=== PATIENT | male | born 1935 | race Caucasian/White ===

== ENCOUNTER 2022-04-20 09:37 | Emergency (ER) | payer OTHER ==
[2022-04-20] MEDS ORDERED: DERMABOND SKIN ADHESIVE TOP ONE (10:43)
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
[2022-04-20 13:26] VITALS: TEMP 98.6
[2022-04-20 13:32] VITALS: BP 164/80; O2SAT 97
== END 2022-04-20 13:17 | disposition home or self-care (01) ==
LOC: ER 09:37
PROC: 0JQ10ZZ Repair Face Subcutaneous Tissue and Fascia, Open Approach (ICD-10-PCS; principal; 2022-04-20)
DX: S01.81XA Laceration without foreign body of other part of head, initial encounter (principal); I10 Essential (primary) hypertension; E78.00 Pure hypercholesterolemia, unspecified; Z79.82 Long term (current) use of aspirin; Z96.651 Presence of right artificial knee joint
CPT/HCPCS: 70450; 99283

== ENCOUNTER 2022-11-16 08:53 | Emergency (ER) | payer OTHER ==
--- OUTSIDE RECORDS SUMMARY | 2022-11-16 08:57 | XMS REPORT | Continuity of Care Document ---
:1935 Author Organization [facility] t Address [facility] [place] [address] Care Team Providers Name Role Phone Ronen Pfeiffer Attending Clinician Unavailable Mak-Mbayo_A_AH Attending Clinician Unavailable RONEN PFEIFFER Admitting Clinician Unavailable Mak-Mbayo_A_AH Admitting Clinician Unavailable Payers Payer Name Policy Type Policy Number Effective Date Expiration Date [place] [id number] 2019 [facility] 00:00:00 [place] [id number] 2019 [facility] 00:00:00 [facility] [id number] - [employer] 00:00:00 (MEDICARE REPLACEMENT/ADV ANTAGE - HMO) Problems Condition Condition Condition Status Onset Resolution Last Treating Co mments Source Name Details Category Date Date Treatment Clinician Date 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 loss type Medical Center Allergies, Adverse Reactions, Alerts This patient has no known allergies or adverse reactions. Social History Social Habit Start Date Stop Date Quantity Comments Source History of Tobacco Use Co mmon [facility] Sex Assigned At Com mon [facility] Smoking Status Start Date Stop Date Source Never Smoker Common [facility] Medications Ordered Filled Start Stop Current Ordering Indication Dosage Frequency Signature Comments Components Source Medication Medication Date Date Medication? Clinician (SIG) Name Name hydroCHLORO hydroCHLORO No 1{table QD hydroCHLOR thiazide 25 thiazide 25 t_in_th Othiazide mg mg e_morni 25 mg ng} Valsartan Valsartan No 1{table QD 320 MG 320 MG t} hydroCHLORO hydroCHLORO No 1{table QD thiazide 25 thiazide 25 t_in_th mg mg e_morni ng} hydroCHLORO hydroCHLORO No thiazide 25 thiazide 25 MG MG Finasteride Finasteride No 5 MG 5 MG Aspirin 81 Aspirin 81 No 1{table QD 81 MG 81 MG t} Valsartan Valsartan No 320 MG 320 MG Lovastatin Lovastatin No 10 MG 10 MG Finasteride Finasteride No 1{table QD 5 MG 5 MG t} Tamsulosin Tamsulosin No 1{capsu QD HCl 0.4 MG HCl 0.4 MG le} Lovastatin Lovastatin No 10 MG 10 MG Lovastatin Lovastatin Yes Ronen take 1 Common Pfeiffer tablet by Spirit mouth - [facility] every day [facility] Finasteride Finasteride Yes Ronen 1 tablet Common Pfeiffer [facility] Hydrochloro Hydrochloro Yes Ronen TAKE 1 Common thiazide thiazide Pfeiffer TABLET BY S pirit MOUTH - [facility] EVERY DAY [facility] Valsartan Valsartan Yes Ronen 1 tablet Common Pfeiffer [facility] CHI [facility] Aspirin 81 Aspirin 81 Yes Ronen 1 tablet Common Pfeiffer [facility] Tamsulosin Tamsulosin Yes Ronen TAKE 1 Common HCl HCl Pfeiffer CAPSULE BY Spirit MOUTH - [facility]I EVERY DAY [facility] Finasteride Finasteride Yes Ronen TAKE 1 Common Pfeiffer TABLET BY Spirit MOUTH - [facility] EVERY DAY [facility] Tamsulosin Tamsulosin No 1{capsu QD Tamsulosin HCl 0.4 MG HCl 0.4 MG le} HCl 0.4 MG hydroCHLORO hydroCHLORO No hydroCHLOR thiazide 25 thiazide 25 Othiazide MG MG 25 MG Finasteride Finasteride No Finasterid 5 MG 5 MG e 5 MG Valsartan Valsartan No Valsartan 320 MG 320 MG 320 MG Aspirin 81 Aspirin 81 No 1{table QD Aspirin 81 81 MG 81 MG t} 81 MG Lovastatin Lovastatin No Lovastatin 10 MG 10 MG 10 MG Tamsulosin Tamsulosin No 1{capsu QD Tamsulosin HCl 0.4 MG HCl 0.4 MG le} HCl 0.4 MG hydroCHLORO hydroCHLORO No hydroCHLOR thiazide 25 thiazide 25 Othiazide MG MG 25 MG Finasteride Finasteride No Finasterid 5 MG 5 MG e 5 MG Valsartan Valsartan No Valsartan 320 MG 320 MG 320 MG Aspirin 81 Aspirin 81 No 1{table QD Aspirin 81 81 MG 81 MG t} 81 MG Lovastatin Lovastatin No Lovastatin 10 MG 10 MG 10 MG hydroCHLORO hydroCHLORO No 1{table QD hydroCHLOR thiazide 25 thiazide 25 t_in_th Othiazide mg mg e_morni 25 mg ng} Finasteride Finasteride No 1{table QD Finasterid 5 MG 5 MG t} e 5 MG Valsartan Valsartan No 1{table QD Valsartan 320 MG 320 MG t} 320 MG Aspirin 81 Aspirin 81 No 1{table QD Aspirin 81 81 MG 81 MG t} 81 MG Lovastatin Lovastatin No Lovastatin 10 MG 10 MG 10 MG Valsartan Valsartan No 1{table QD Valsartan 320 MG 320 MG t} 320 MG Lovastatin Lovastatin No Lovastatin 10 MG 10 MG 10 MG Tamsulosin Tamsulosin No 1{capsu QD Tamsulosin HCl 0.4 MG HCl 0.4 MG le} HCl 0.4 MG Finasteride Finasteride No 1{table QD Finasterid 5 MG 5 MG t} e 5 MG hydroCHLORO hydroCHLORO No 1{table QD hydroCHLOR thiazide 25 thiazide 25 t_in_th Othiazide mg mg e_morni 25 mg ng} hydroCHLORO hydroCHLORO No 1{table QD hydroCHLOR thiazide 25 thiazide 25 t_in_th Othiazide mg mg e_morni 25 mg ng} Finasteride Finasteride No 1{table QD Finasterid 5 MG 5 MG t} e 5 MG Valsartan Valsartan No 1{table QD Valsartan 320 MG 320 MG t} 320 MG Aspirin 81 Aspirin 81 No 1{table QD Aspirin 81 81 MG 81 MG t} 81 MG Lovastatin Lovastatin No Lovastatin 10 MG 10 MG 10 MG Valsartan Valsartan No 1{table QD Valsartan 320 MG 320 MG t} 320 MG Lovastatin Lovastatin No Lovastatin 10 MG 10 MG 10 MG Tamsulosin Tamsulosin No 1{capsu QD Tamsulosin HCl 0.4 MG HCl 0.4 MG le} HCl 0.4 MG Finasteride Finasteride No 1{table QD Finasterid 5 MG 5 MG t} e 5 MG Tamsulosin Tamsulosin Ronen 1 capsule Common HCl HCl 02-06 Pfeiffer Spirit 00:00 - [facility] :00 [facility] Immunizations Ordered Immunization Filled Immunization Date Status Commen ts Source Name Name [facility] Flu 2020-06-30 Completed [facility] 08:29:00 - [facility] Flu FluAD 2020-06-30 Completed [facility] 08:29:00 - [facility] FluAD FluAD 2020-06-30 Completed [facility] 08:29:00 - [facility] FluAD 2020-06-30 Com[facility]30 [facility] 08:29:00 [facility] Vital Signs Vital Name Observation Time Observation Value Comments Source height 2022-04-15 08:20:00 67.50 [in_i] [facility] weight 2022-04-15 08:20:00 160.5 [lb_av] [facility] temperature 2022-04-15 08:20:00 99.1 [degF] [facility] bmi 2022-04-15 08:20:00 24.76 kg/m2 [facility] oximetry 2022-04-15 08:20:00 95 % [facility] respiratory rate 2022-04-15 08:20:00 17 /min Comm on [facility] blood pressure 2022-04-15 08:20:00 135 mm[Hg] [facility] - systolic [facility] blood pressure 2022-04-15 08:20:00 72 mm[Hg] Common [facility] - diastolic [facility] height 2022-04-15 08:20:00 67.50 [in_i] Common [facility] weight 2022-04-15 08:20:00 160.5 [lb_av] Common [facility] temperature 2022-04-15 08:20:00 99.1 [degF] Common [facility] bmi 2022-04-15 08:20:00 24.76 kg/m2 Common [facility] oximetry 2022-04-15 08:20:00 95 % Common [facility] respiratory rate 2022-04-15 08:20:00 17 /min Comm on [facility] blood pressure 2022-04-15 08:20:00 135 mm[Hg] Common [facility] - systolic [facility] blood pressure 2022-04-15 08:20:00 72 mm[Hg] Common [facility] diastolic [facility] weight 2021-10-15 08:00:00 168.4 [lb_av] [facility] temperature 2021-10-15 08:00:00 97.5 [degF] Common [facility] bmi 2021-10-15 08:00:00 25.98 kg/m2 Common [facility] oximetry 2021-10-15 08:00:00 97 % Common [facility] respiratory rate 2021-10-15 08:00:00 17 /min Comm on [facility] blood pressure 2021-10-15 08:00:00 137 mm[Hg] Common [facility] - systolic [facility] blood pressure 2021-10-15 08:00:00 74 mm[Hg] Common [facility] - diastolic [facility] height 2021-10-15 08:00:00 67.50 [in_i] Common [facility] height 2021-04-24 10:30:00 67.50 [in_i] [facility] weight 2021-04-24 10:30:00 169.7 [lb_av] [facility] temperature 2021-04-24 10:30:00 98.2 [degF] Common [facility] bmi 2021-04-24 10:30:00 26.18 kg/m2 [facility] oximetry 2021-04-24 10:30:00 94 % [facility] respiratory rate 2021-04-24 10:30:00 16 /min Comm on [facility] blood pressure 2021-04-24 10:30:00 135 mm[Hg] Common [facility] - systolic [facility] blood pressure 2021-04-24 10:30:00 62 mm[Hg] Common [facility] - diastolic [facility] height 2021-04-24 10:00:00 67.50 [in_i] Common [facility] weight 2021-04-24 10:00:00 169.7 [lb_av] [facility] temperature 2021-04-24 10:00:00 98.2 [degF] [facility] bmi 2021-04-24 10:00:00 26.18 kg/m2 Common [facility] oximetry 2021-04-24 10:00:00 94 % Common [facility] blood pressure 2021-04-24 10:00:00 135 mm[Hg] Common [facility] - systolic [facility] blood pressure 2021-04-24 10:00:00 62 mm[Hg] [facility] diastolic [facility] Procedures This patient has no known procedures. Encounters Start End Encounter Admission Attending Care Care Encounter Source Date/Time Date/Time Type Type Clinicians Facility Department ID 2022-04-11 Outpatient Pfeiffer, STLMLC STLMLC [id number] Common 09:23:00 Ronen [facility] 2021-11-06 Outpatient Pfeiffer, STLMLC STLMLC [id number] Common 14:30:22 Ronen [facility] 2021-11-06 Outpatient Pfeiffer, STLMLC STLMLC [id number] Common 14:30:13 Ronen [facility] 2021-11-06 Outpatient Pfeiffer, STLMLC STLMLC [id number] Common 12:31:19 Ronen [facility] 2021-11-06 Outpatient Pfeiffer, STLMLC STLMLC [id number] Common 11:59:39 Ronen [id number] [facility] 2021-11-06 Outpatient Pfeiffer, STLMLC STLMLC [id number] Common 11:53:01 Ronen [id number] [facility] 2021-11-06 Outpatient Pfeiffer, STLMLC STLMLC [id number] Common 11:19:18 Ronen [id number] [facility] 2021-11-06 Outpatient Pfeiffer, STLMLC STLMLC [id number] Common 11:18:11 Ronen [id number] [facility] 2021-11-06 Outpatient Pfeiffer, STLMLC STLMLC [id number] Common 11:04:01 Ronen [id number] [facility] 2022-04-15 2022-04-15 OFFICE STLMLC STLMLC [id number] Co mmon 00:00:00 00:00:00 VISIT Spirit ESTAB PT - [facility]I LEVEL [address] [place] [address] 2022-04-15 2022-04-15 SUB ANNUAL STLMLC STLMLC [id number] Common 00:00:00 00:00:00 MCR Spirit WELLNESS - [facility]I VISIT [facility] 2021-10-15 2021-10-15 OFFICE STLMLC STLMLC [id number] Co mmon 00:00:00 00:00:00 VISIT Spirit ESTAB PT - [facility] LEVEL 4 [facility] 2021-04-24 2021-04-24 OFFICE STLMLC STLMLC [id number] Co mmon 00:00:00 00:00:00 VISIT Spirit ESTAB PT - [facility] LEVEL 4 [facility] 2021-04-24 2021-04-24 SUB ANNUAL STLMLC STLMLC [id number] Common 00:00:00 00:00:00 MCR [facility] WELLNESS - [facility]I VISIT [facility] 2020-12-04 2020-12-04 Outpatient STLMLC STLMLC [id number] Common 00:00:00 00:00:00 Spirit - CHI [facility] 2020-08-08 2020-08-08 Outpatient STLMLC STLMLC [id number] Common 00:00:00 00:00:00 [facility] 2020-05-09 2020-05-09 [id number] Common 08:00:00 08:00:[address] [employer] [address] [facility] 2020-02-07 2020-02-07 [facility] [id number] Common 08:15:00 08:15:[address] [facility] 2019-11-30 2019-11-30 Outpatient Mak-Mbayo VFP VFP [id number] [facility] 07:23:00 07:23:00 _A_ [id number] [facility] 2019-11-09 2019-11-09 Out[facility] [id number] Common 09:00:00 09:00:[address] [facility] Results This patient has no known results.
[2022-11-16] MEDS ORDERED: FAMOTIDINE 20 MG/2 ML VIAL IV ONE (09:36)
[2022-11-16] MEDS ORDERED: NITROGLYCERIN 1 GM PKT TD ONE (09:36)
[2022-11-16] MEDS ORDERED: ASPIRIN 81 MG CHEWABLE TABLET ONE (09:36)
[2022-11-16] MEDS ORDERED: ONDANSETRON 4 MG/2 ML VIAL ONE (09:36)
[2022-11-16] MEDS ORDERED: CLOPIDOGREL 75 MG TABLET ONE ×2 (09:39→09:43)
[2022-11-16 09:45] LABS: Absolute Lymphocytes (CBC) 0.8 K/uL (0.7-4.9); Hematocrit 46.6 % (39.6-49.0); Lymphocytes % 12.1 % (15.3-44.8); MCV 95.3 fL (80-100); MPV 7.8 fL (7.6-11.3); RBC Red Blood Cell Count 4.89 M/uL (4.33-5.43)
[2022-11-16] MEDS ORDERED: TENECTEPLASE 50 MG/10 ML VIAL IV ONE (09:49)
[2022-11-16 09:58] LABS: Albumin 3.7 g/dL (3.4-5.0); Bilirubin Direct 0.2 mg/dL (0-0.2)
[2022-11-16 10:02] LABS: SARS-CoV-2 Antigen Rapid Res Negative (Negative)
[2022-11-16 10:02] LABS: Potassium 3.6 mmol/L (3.5-5.1)
--- NOTE | 2022-11-16 10:07 | ER ---
Nurse's Notes [facility] Name: Ralph Mckeon Age: 87 yrs Sex: Male : 1935 Arrival Date: 11/16/2022 Time: 08:58 Bed External Waiting [facility] MD: Diagnosis: ST elevation (STEMI) myocardial infarction of inferior wall Presentation: 11/16 09:16 Chief complaint: Patient states: is having indigestion type pain/pressure in chest for iw past 2 nights, pain is relieved by belching but it keeps him up at night , feels SOB with the pressure. Coronavirus screen: At this time, the client does not indicate any symptoms associated with coronavirus-19. Ebola Screen: Patient negative for fever greater than or equal to 101.5 degrees Fahrenheit, and additional compatible Ebola Virus Disease symptoms Patient denies exposure to infectious person. Patient denies travel to an Ebola-affected area in the 21 days before illness onset. No symptoms or risks identified at this time. Initial Sepsis Screen: Does the patient meet any 2 criteria? No. Patient's initial sepsis screen is negative. Does the patient have a suspected source of infection? No. Patient's initial sepsis screen is negative. Risk Assessment: Do you want to hurt yourself or someone else? Patient reports no desire to harm self or others. 09:16 Method Of Arrival: Ambulatory iw 09:16 Acuity: PEYTON 3 iw 10:02 Acuity: PEYTON 1 hb Historical: - Allergies: 09:19 No Known Allergies; iw - Home Meds: 09:19 valsartan 320 mg Oral tab once daily [Active]; hydrochlorothiazide 25 mg Oral tab 1 tab iw once daily [Active]; lovastatin 10 mg Oral tab 1 tab once daily [Active]; finasteride 5 mg Oral tab once daily [Active]; aspirin 81 mg Oral tab daily [Active]; - PMHx: 09:19 High Cholesterol; Hypertension; iw - PSHx: 09:19 Prostate surgery; cataracts; Right knee replacement; iw - Immunization history:: Client reports receiving the 2nd dose of the Covid vaccine, Pneumococcal vaccine is up to date, Flu vaccine is up to date. - Social history:: Smoking status: Patient/guardian denies using tobacco. Screenin:39 [facility] ED Fall Risk Assessment (Adult) History of falling in the last 3 months, vg1 including since admission No falls in past 3 months (0 pts) Confusion or Disorientation No (0 pts) Intoxicated or Sedated No (0 pts) Impaired Gait Yes (1 pt) Mobility Assist Device Used Yes (1 pt) Altered Elimination No (0 pt) Score/Fall Risk Level 0 - 2 = Low Risk Oriented to surroundings, Maintained a safe environment, Educated pt \T\ family on fall prevention, incl call for assistance when getting out of bed, Assessed \T\ reinforced patient's understanding of fall precautions, Used ambulatory aids as needed (educated on \T\ assisted with). Abuse screen: Denies threats or abuse. Denies injuries from another. Nutritional screening: No deficits noted. Tuberculosis screening: No symptoms or risk factors identified. Assessment: 09:43 General: Appears in no apparent distress. Behavior is calm, cooperative. Pain: Pain hb currently is 0 out of 10 on a pain scale. at worst was 8 out of 10 on a pain scale. Neuro: Level of Consciousness is awake, alert, obeys commands, Oriented to person, place, time, situation. Cardiovascular: Reports intermittent substernal CP Patient's skin is warm and dry. Respiratory: Respiratory effort is even, unlabored, Respiratory pattern is regular, symmetrical. GI: No signs and/or symptoms were reported involving the gastrointestinal system. : No signs and/or symptoms were reported regarding the genitourinary system. EENT: No signs and/or symptoms were reported regarding the EENT system. Derm: Skin is pink, warm \T\ dry. Musculoskeletal: No signs and/or symptoms reported regarding the musculoskeletal system. 09:56 Reassessment: Attempted to call report, director of cardiac cath lab staff unavailable, told to call back in 10 mins per Carlota FLOWER. 10:10 Reassessment: Attempted to call report, director of cardiac cath lab unavailable. 10:23 Reassessment: Attemtpted to call report, director of cardiac cath lab unavailable. 10:44 Reassessment: Attempted to call report to ER, charge nurse requested call back 10 . Vital Signs: 09:16 BP 185 / 92; Pulse 76; Resp 16; Pulse Ox 94% on R/A; Weight 68.49 kg; Height 5 ft. 8 iw in. (172.72 cm); 09:43 Temp 98.4(TE); vg1 09:16 Body Mass Index 22.96 (68.49 kg, 172.72 cm) iw ED Course: 08:58 Patient arrived in ED. as 08:59 Alvaro Addison MD is Attending Physician. kdr 09:13 Fadia Wadsworth, RN is Primary Nurse. hb 09:13 Fadia Wadsworth, RN is Primary Nurse. hb 09:18 Triage completed. iw 09:20 Arm band placed on. iw 09:35 initiated a transfer with Steven Feliz from the [facility]/ STEMI eb protocol. 09:38 Initial lab(s) drawn, by me, sent to lab. Inserted saline lock: 20 gauge in right vg1 antecubital area, using aseptic technique. Blood collected. Patient maintains SpO2 saturation greater than 95% on room air. 09:39 Patient has correct armband on for positive identification. Placed in gown. Bed in low vg1 position. Call light in reach. Side rails up X2. Adult w/ patient. Client placed on continuous cardiac and pulse oximetry monitoring. NIBP monitoring applied. 09:[address] Orlando the gas meter installer production tester for [facility] with Dr. Addison for eb patient transfer consultation. 09:48 administrative approval given by Steven Feliz, patient has been accepted to [facility] Land Surveying Manager/ Dr. Orlando has accepted the patient in transfer/ report to be called to the [phone]. 09:50 Inserted saline lock: 20 gauge in right forearm, using aseptic technique. mm9 09:51 SARS RAPID Sent. mm9 09:51 XRAY Chest (1 view) Sent. mm9 09:55 XRAY Chest (1 view) In Process Unspecified. EDMS 10:30 No provider procedures requiring assistance completed. Patient transferred, IV remains hb in place. Administered Medications: 09:42 Drug: Nitro-Bid (nitroglycerin) Ointment 2 % 1 inches Route: Transdermal; Site: hb anterior chest wall; 09:42 Drug: Aspirin Chewable Tablet 324 mg Route: PO; hb 09:42 Drug: Pepcid (famotidine) 20 mg Route: IVP; Site: right antecubital; hb 09:42 Drug: Zofran (Ondansetron) 4 mg Route: IVP; Site: right antecubital; hb 09:42 Drug: PlaVIX (clopidogrel) 600 mg Route: PO; hb 10:00 Drug: Tenecteplase 35 mg {Co-Signature: juan (Katerina Pza RN).} Route: IV; Rate: hb calculated rate; Site: right antecubital; Medication: 09:40 VIS not applicable for this client. vg1 Outcome: 10:07 ER care complete, transfer ordered by . kdr 10:30 Transferred by helicopter to [facility]. hb 10:30 Condition: stable 10:30 Instructed on the need for transfer, Demonstrated understanding of instructions. 10:34 Patient left the ED. hb Signatures: Dispatcher [employer] EDMS Alvaro Addison MD MD kdr Martinez, Amelia as Williams, Irene, RN RN Fadia Valadez RN RN hb Bessie Jones Victoria RN RN vg1 Jolanta Larry mm9 Katerina martinez Corrections: (The following items were deleted from the chart) 10:08 10:02 Acuity: PEYTON 2 iw hb
--- NOTE | 2022-11-16 10:07 | EDPHYS ---
Physician Documentation [facility] Name: Ralph Mckeon Age: 87 yrs Sex: Male : 1935 Arrival Date: 11/16/2022 Time: 08:58 Bed External Waiting Private MD: ELEONORA Physician Alvaro Addison HPI: 11/16 09:58 This 87 yrs old Male presents to ER via Ambulatory with complaints of Chest Pressure, kdr Weakness. 09:58 No chest pain no belly pain he says patient states he has had an indigestion feeling kdr since Thursday. He states that he occasionally has pressure that builds up and then he needs to belch and that seems to relieve his discomfort. Patient is not in any acute distress and is nontoxic-appearing.. Historical: - Allergies: 09:19 No Known Allergies; iw - Home Meds: 09:19 valsartan 320 mg Oral tab once daily [Active]; hydrochlorothiazide 25 mg Oral tab 1 tab iw once daily [Active]; lovastatin 10 mg Oral tab 1 tab once daily [Active]; finasteride 5 mg Oral tab once daily [Active]; aspirin 81 mg Oral tab daily [Active]; - PMHx: 09:19 High Cholesterol; Hypertension; iw - PSHx: 09:19 Prostate surgery; cataracts; Right knee replacement; iw - Immunization history:: Client reports receiving the 2nd dose of the Covid vaccine, Pneumococcal vaccine is up to date, Flu vaccine is up to date. - Social history:: Smoking status: Patient/guardian denies using tobacco. ROS: 09:58 Constitutional: Negative for fever, chills, and weight loss, Eyes: Negative for injury, kdr pain, redness, and discharge, ENT: Negative for injury, pain, and discharge, Neck: Negative for injury, pain, and swelling, Cardiovascular: Negative for chest pain, palpitations, and edema, Respiratory: Negative for shortness of breath, cough, wheezing, and pleuritic chest pain, Back: Negative for injury and pain, : Negative for injury, bleeding, discharge, and swelling, MS/Extremity: Negative for injury and deformity, Skin: Negative for injury, rash, and discoloration, Neuro: Negative for headache, weakness, numbness, tingling, and seizure activity. Psych: Negative for depression, anxiety, suicide ideation, homicidal ideation, and hallucinations, Allergy/Immunology: Negative for hives, rash, and allergies, Endocrine: Negative for neck swelling, polydipsia, polyuria, polyphagia, and marked weight changes, Hematologic/Lymphatic: Negative for swollen nodes, abnormal bleeding, and unusual bruising. 09:58 Abdomen/GI: Positive for abdominal pain, nausea, The patient states that he has felt bloated and has had pressure in his upper abdomen since [place]. He states that periodically he will belch at which time the pressure seems to be relieved. He has not had anything like this before he denies shortness of breath or diaphoresis. Patient is otherwise nontoxic-appearing. Exam: :58 Constitutional: This is a well developed, well nourished patient who is awake, alert, kdr and in no acute distress. Head/Face: Normocephalic, atraumatic. Eyes: Pupils equal round and reactive to light, extra-ocular motions intact. Lids and lashes normal. Conjunctiva and sclera are non-icteric and not injected. Cornea within normal limits. Periorbital areas with no swelling, redness, or edema. Neck: Trachea midline, no thyromegaly or masses palpated, and no cervical lymphadenopathy. Supple, full range of motion without nuchal rigidity, or vertebral point tenderness. No Meningismus. Chest/axilla: Normal chest wall appearance and motion. Nontender with no deformity. No lesions are appreciated. Cardiovascular: Regular rate and rhythm with a normal S1 and S2. No gallops, murmurs, or rubs. Normal PMI, no JVD. No pulse deficits. Respiratory: Lungs have equal breath sounds bilaterally, clear to auscultation and percussion. No rales, rhonchi or wheezes noted. No increased work of breathing, no retractions or nasal flaring. Abdomen/GI: Soft, non-tender, with normal bowel sounds. No distension or tympany. No guarding or rebound. No evidence of tenderness throughout. Back: No spinal tenderness. No costovertebral tenderness. Full range of motion. Skin: Warm, dry with normal turgor. Normal color with no rashes, no lesions, and no evidence of cellulitis. MS/ Extremity: Pulses equal, no cyanosis. Neurovascular intact. Full, normal range of motion. Neuro: Awake and alert, GCS 15, oriented to person, place, time, and situation. Cranial nerves II-XII grossly intact. Motor strength 5/5 in all extremities. Sensory grossly intact. Cerebellar exam normal. Normal gait. Psych: Awake, alert, with orientation to person, place and time. Behavior, mood, and affect are within normal limits. 09:58 ECG was reviewed by the Attending Physician. Vital Signs: 09:16 BP 185 / 92; Pulse 76; Resp 16; Pulse Ox 94% on R/A; Weight 68.49 kg; Height 5 ft. 8 iw in. (172.72 cm); 09:43 Temp 98.4(TE); vg1 09:16 Body Mass Index 22.96 (68.49 kg, 172.72 cm) iw MDM: 09:41 ED course: I discussed with Dr. Hein about 10 minutes ago and he recommended kdr transfer. Currently awaiting call from cardiology at [facility].. 09:58 Data reviewed: vital signs, nurses notes, lab test result(s), EKG, radiologic studies. [facility] ED course: I discussed the case with the sand cutter operator at [facility]. He indicated that we should TNKase the patient was a full dose. Patient otherwise continue to be stable in the ED.. 10:07 Patient medically screened. kdr 11/16 08:59 Order name: Basic Metabolic Panel [facility] 11/16 08:59 Order name: CBC with Diff kdr 11/16 08:59 Order name: LFT's kdr 11/16 08:59 Order name: NT PRO-BNP kdr 11/16 08:59 Order name: Troponin HS kdr 11/16 09:39 Order name: SARS RAPID eb 11/16 08:59 Order name: XRAY Chest (1 view) [facility] 11/16 08:59 Order name: EKG; Complete Time: 09:00 kdr 11/16 08:59 Order name: Cardiac monitoring; Complete Time: 09:16 kdr 11/16 08:59 Order name: EKG - Nurse/Tech; Complete Time: 09:16 kdr 11/16 08:59 Order name: IV Saline Lock; Complete Time: 09:42 kdr 11/16 08:59 Order name: Labs collected and sent; Complete Time: 09:42 kdr 11/16 08:59 Order name: O2 Per Protocol; Complete Time: 09:16 kdr 11/16 08:59 Order name: O2 Sat Monitoring; Complete Time: 09:16 kdr EC:58 Rate is 67 beats/min. Rhythm is regular, Sinus Rhythm with No ectopy. QRS [place] is kdr Normal. IA interval is normal. QRS interval is normal. ST Segment is elevated in leads II, III, aVF, 2-5mm. Clinical impression: Anterior IN - acute. Administered Medications: 09:42 Drug: Nitro-Bid (nitroglycerin) Ointment 2 % 1 inches Route: Transdermal; Site: hb anterior chest wall; 09:42 Drug: Aspirin Chewable Tablet 324 mg Route: PO; hb 09:42 Drug: Pepcid (famotidine) 20 mg Route: IVP; Site: right antecubital; hb 09:42 Drug: Zofran (Ondansetron) 4 mg Route: IVP; Site: right antecubital; hb 09:42 Drug: PlaVIX (clopidogrel) 600 mg Route: PO; hb 10:00 Drug: Tenecteplase 35 mg {Co-Signature: juan (Katerina Paz RN).} Route: IV; Rate: hb calculated rate; Site: right antecubital; Disposition Summary: 11/16/22 10:07 Transfer Ordered Transfer Location: [facility] kdr Reason: Higher level of care kdr Condition: Serious kdr Problem: new kdr Symptoms: have improved kdr Accepting Physician: Dr. Orlando(11/16/22 10:34) hb Diagnosis - ST elevation (STEMI) myocardial infarction of inferior wall kdr Discharge Instructions: - Discharge Summary Sheet eb Forms: - Medication Reconciliation Form kdr - SBAR form eb Signatures: Dispatcher [employer] Alvaro Stern MD MD kdr Katerina Paz RN RN iw Fadia Wadsworth RN RN hb Katerina martinez Corrections: (The following items were deleted from the chart) 10:34 10:07 Dr. Orlando kdr hb
--- NOTE | 2022-11-16 10:11 | RAD REPORT ---
EXAM DESCRIPTION: RAD - Chest Single View - 11/16/2022 9:53 am CLINICAL HISTORY: Chest pain COMPARISON: Portable 09/18/2016 TECHNIQUE: AP portable chest image was obtained 11/16/2022 9:53 am . FINDINGS: Lung volumes are decreased compared to the prior study. Interstitial pattern is increased from the comparison. This is in part due to shallow inspiration mid and lower lung field interstitial edema or infiltrate suspected. No focal consolidation or mass. Heart and vasculature are normal. No measurable pleural effusion and no pneumothorax. No acute bony abnormality seen. No acute aortic findings suspected. IMPRESSION: Increased interstitial pattern compared to 2016 exam. Mild interstitial edema or infiltrate superimposed on chronic lung pattern is suspected.
[2022-11-16 10:38] VITALS: BP 185/92; O2SAT 94
[2022-11-16 10:39] VITALS: TEMP 98.4
== END 2022-11-16 10:34 | disposition short-term general hospital (02) ==
LOC: ER 08:53
DX: I21.19 ST elevation (STEMI) myocardial infarction involving other coronary artery of inferior wall (principal); I10 Essential (primary) hypertension; E78.00 Pure hypercholesterolemia, unspecified; Z96.651 Presence of right artificial knee joint; Z79.82 Long term (current) use of aspirin; Z20.822 Contact with and (suspected) exposure to COVID-19
CPT/HCPCS: 92977; 93005; 85025; 80048; 36415; 80076; 84484; 83880; 71045; 96375; 96374; 99285; 87811; J3101; J2405

== ENCOUNTER 2023-04-25 17:01 | Emergency (ER) | payer OTHER ==
--- OUTSIDE RECORDS SUMMARY | 2023-04-25 17:06 | XMS REPORT | Continuity of Care Document ---
:1935 Author Organization [facility] t Address [address] [facility] [address] [place] [address] Care Team Providers Name Role Phone MATEO PFEIFFER Primary Care Physician Unavailable Miranda Orlando MD Attending Clinician [phone] Mateo Pfeiffer Attending Clinician Unavailable TERESO RAO Attending Clinician Unavailable Tereso Rao MD Attending Clinician Serenity Fisher RN Attending Clinician Unavailable Wallace Peters MD Attending Clinician [phone] MIRANDA ORLANDO Attending Clinician Unavailable No, Pcp [facility] [place] Attending Clinician Unavailable Mak-Mbayo_A_AH Attending Clinician Unavailable MIRANDA ORLANDO Admitting Clinician Unavailable MATEO PFEIFFER Admitting Clinician Unavailable Mak-Mbayo_A_AH Admitting Clinician Unavailable Payers Payer Name Policy Type Policy Number Effective Date Expiration Date S g[facility] [place] [id number] 2022 PLUS CLASSIC NO 00:00:00 PREMIUM HMO [employer] [id number] 2019 [facility] 00:00:00 - [facility] [place] [id number] 2019 [facility] 00:00:00 - [facility] [id number] [id number] - [facility] 00:00:00 (MEDICARE REPLACEMENT/ADV ANTAGE - HMO) Problems Condition Condition Condition Status Onset Resolution Last Treating Co mments Source Name Details Category Date Date Treatment Clinician Date STEMI (ST STEMI (ST Disease Recurre [facility] elevation elevation nce 2-05 Luke [facility] myocardial myocardial 00:00: Me dical infarction infarction 00 Ce nter ) ) 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, - [facility] un[facility] hearing [facility] loss type Medical Center Allergies, Adverse Reactions, Alerts Allergy Allergy Status Severity Reaction(s) Onset Inactive Treating Comm ents Source Name Type Date Date Clinician NO KNOWN Drug Active Univers ALLERGIE Class ity of S [facility] NO KNOWN Allergy Active [facility] ALLERGIE S Social History Social Habit Start Date Stop Date Quantity Comments Source History SDOH [facility] Transport Non-[facility] History of tobacco Cigarette Smoker University of use [facility] Gender identity Universit y of [facility] Sexual orientation Univer sity [facility] Exposure to 2023-01-12 2023-01-22 Not sure University SARS-CoV-2 (event) 00:00:00 09:59:00 [facility] Tobacco use and 2023-01-22 2023-01-22 Smokeless Universit y of exposure 00:00:00 00:00:00 tobacco non-user [facility] History of Social 2023-01-22 2023-01-22 Univers ity of function 00:00:00 00:00:00 [facility] Alcohol intake 2022-11-27 2022-11-27 [facility] (finding) History [facility] 2022-11-17 2022-11-[address] [facility] Transport Med 00:00:00 00:00:[address] [facility] 2022-11-17 2022-11-[address] [facility] Housing Unable to 00:00:00 00:00:00 Medical Center Pay History [facility] 2022-11-17 2022-11-[address] [facility] Housing Places 00:00:00 00:00:00 Medical Ce nter Lived History [facility] 2022-11-17 2022-11-[address] [facility] Housing Homeless 00:00:00 00:00:00 Medical Center Last Year Tobacco Comment 2022-11-16 2022-11-16 "I Quit [address] [facility] 00:00:00 00:00:00 ago" Medical Center Sex Ass[birth year] At [birth year] Univers y of 00:00:00 00:00:00 [facility] Smoking Status Start Date Stop Date Source Ex-smoker 2023-01-22 00:00:00 2023-01-22 00:00:00 [facility] Never [facility]oker [facility] Medications Ordered Filled Start Stop Current Ordering Indication Dosage Frequency Signature Comments Components Source Medication Medication Date Date Medication? Clinician (SIG) Name Name aspirin 81 Yes 81mg Take 1 Unive rs mg chewable 7-14 tablet by ity of tablet 13:23: mouth in [place] 17 the Medical morning. Branch aspirin 81 Yes 81mg Take 1 Unive rs mg chewable 7-14 tablet by ity of tablet 13:23: mouth in [place] 17 the Medical morning. Branch aspirin 81 Yes 81mg Take 1 Unive rs mg chewable 4-13 tablet by ity of tablet 10:23: mouth in [place] 45 the Medical morning. Branch aspirin 81 Yes 81mg Take 1 Unive rs mg chewable 4-13 tablet by ity of tablet 10:23: mouth in [place] 45 the Medical morning. Branch valsartan Yes [id number] 320mg Take 1 U nivers 320 mg 4-13 tablet by ity of tablet 00:00: mouth in [place] 00 the Medical morning. Branch valsartan 2023-0 Yes [id number] 320mg Take 1 U nivers 320 mg 4-13 tablet by ity of tablet 00:00: mouth in [place] 00 the Medical morning. Branch valsartan 3-0 Yes [id number] 320mg Take 1 U nivers 320 mg 4-13 tablet by ity of tablet 00:00: mouth in [place] 00 the Medical morning. Branch valsartan 3-0 Yes [id number] 320mg Take 1 U nivers 320 mg 4-13 tablet by ity of tablet 00:00: mouth in [place] 00 the Medical morning. Branch atorvastati 2022-0 Yes TAKE 1 Univ ers n 40 mg 3-09 TABLET BY ity of tablet 00:00: MOUTH [place] 00 EVERY DAY Medical FOR 90 Branch DAYS clopidogreL 2022-0 Yes TAKE 1 Univ ers 75 mg 3-09 TABLET BY ity of tablet 00:00: MOUTH [place] 00 EVERY DAY Medical FOR 90 Branch DAYS metoprolol 3-0 Yes TAKE 1/2 Uni vers tartrate 25 3-09 TABLET BY ity of mg tablet 00:00: MOUTH [place] 00 TWICE A Medical DAY Branch atorvastati 3-0 Yes TAKE 1 Univ ers n 40 mg 3-09 TABLET BY ity of tablet 00:00: MOUTH [place] 00 EVERY DAY Medical FOR 90 Branch DAYS clopidogreL 3-0 Yes TAKE 1 Univ ers 75 mg 3-09 TABLET BY ity of tablet 00:00: MOUTH [place] 00 EVERY DAY Medical FOR 90 Branch DAYS metoprolol 3-0 Yes TAKE 1/2 Uni vers tartrate 25 3-09 TABLET BY ity of mg tablet 00:00: MOUTH [place] 00 TWICE A Medical DAY Branch atorvastati 3-0 Yes TAKE 1 Univ ers n 40 mg 3-09 TABLET BY ity of tablet 00:00: MOUTH [place] 00 EVERY DAY Medical FOR 90 Branch DAYS clopidogreL 3-0 Yes TAKE 1 Univ ers 75 mg 3-09 TABLET BY ity of tablet 00:00: MOUTH [place] 00 EVERY DAY Medical FOR 90 Branch DAYS metoprolol 3-0 Yes 25mg Take 1 Unive rs tartrate 25 3-09 tablet in ity of mg tablet 00:00: the [place] 00 morning. Medical Branch atorvastati 3-0 Yes TAKE 1 Univ ers n 40 mg 3-09 TABLET BY ity of tablet 00:00: MOUTH [place] 00 EVERY DAY Medical FOR 90 Branch DAYS clopidogreL Yes TAKE 1 Univ ers 75 mg 3-09 TABLET BY ity of tablet 00:00: MOUTH [place] 00 EVERY DAY Medical FOR 90 Branch DAYS metoprolol Yes 25mg Take 1 Unive rs tartrate 25 -09 tablet in ity of mg tablet 00:00: the [place] 00 morning. Medical Branch clopidogreL 2022- No 75mg QD Take [address] (PLAVIX) 75 11-21- tablet (75 L ukes mg tablet 00:00: 23:59 mg total) Me dical 00 :00 by mouth Center daily for 30 days. finasteride Yes 5mg QD Take [address] (PROSCAR) 5 - by mouth Luke s mg tablet 11:02: daily. Medica l [address] [place] aspirin 81 0 Yes 81mg QD Take [address] MG EC 11-20 by mouth [facility]ukes tablet 11:02: daily. [address] valsartan 2022- No 320mg QD Take [address] (DIOVAN) 11-20 mg by Lukes 320 MG 10:47: 00:00 mouth Medical tablet 26 :00 daily. Center hydroCHLORO 2022- No 25mg QD Take [address] thiazide 11-20 by mouth [facility]ukes (HYDRODIURI 10:47: 00:00 daily. Med ical L) 25 MG 26 :00 Center tablet lovastatin 2022- No 10mg QD Take [address] (MEVACOR) 11-20 by mouth Lukes 10 MG 10:47: 00:00 daily. Medical tablet 26 :00 Center atorvastati 2022- No 40mg QD Take [address] n (LIPITOR) 11-20- tablet (40 L ukes 40 MG 00:00: 23:59 mg total) Medica l tablet 00 :00 by mouth Center nightly for 30 days. metoprolol 2022- No 12.5mg Q.5D Take 0.[address] tartrate 11-20-11 tablets Lukes (LOPRESSOR) 00:00: 23:59 (12.5 mg M edical 25 MG 00 :00 total) by Center tablet mouth 2 (two) times daily for 30 days. finasteride 2023-0 Yes 5mg Take 1 Univ ers 5 mg tablet 1-24 tablet by ity of 00:00: mouth in [place] 00 the Medical morning. Branch finasteride 2023-0 Yes 5mg Take 1 Univ ers 5 mg tablet 1-24 tablet by ity of 00:00: mouth in [place] 00 the Medical morning. Branch finasteride 2023-0 Yes 5mg Take 1 Univ ers 5 mg tablet 1-24 tablet by ity of 00:00: mouth in [place] 00 the Medical morning. Branch finasteride 2023-0 Yes 5mg Take 1 Univ ers 5 mg tablet 1-24 tablet by ity of 00:00: mouth in [place] the Medical morning. Branch Lovastatin Lovastatin Yes Mateo take 1 Common Pfeiffer tablet by Spirit mouth - CHI every day [facility] Finasteride Finasteride Yes Mateo 1 tablet Common Pfeiffer Spirit [facility] Hydrochloro Hydrochloro Yes Mateo TAKE 1 Common thiazide thiazide Pfeiffer TABLET BY S pirit MOUTH - CHI EVERY DAY [facility] Valsartan Valsartan Yes Mateo 1 tablet Common Pfeiffer Spirit - [facility] Aspirin 81 Aspirin 81 Yes Mateo 1 tablet Common Pfeiffer [facility] Tamsulosin Tamsulosin Yes Mateo TAKE 1 Common HCl HCl Pfeiffer CAPSULE BY Spirit MOUTH - CHI EVERY DAY [facility] Finasteride Finasteride Yes Mateo TAKE 1 Common Pfeiffer TABLET BY Spirit MOUTH - CHI EVERY DAY [facility] Tamsulosin Tamsulosin No 1{capsu QD [...] Lovastatin Lovastatin No 10 MG 10 MG Tamsulosin Tamsulosin 2020- No Amteo 1 capsule Common HCl HCl - Pfeiffer Spirit 00:00 - CHI :00 [facility] Immunizations Ordered Immunization Filled Immunization Date Status Commen ts Source Name Name FluAD FluAD 2020-06-30 Completed [facility] 08:29:00 - [facility] FluAD FluAD 2020-06-30 Completed [facility] 08:29:00 - [facility] FluAD FluAD 2020-06-30 Completed [facility] 08:29:00 [facility] FluAD FluAD 2020-06-30 Completed [facility] 08:29:00 - [facility] FluAD FluAD 2020-06-30 Completed [facility] 08:29:00 [facility] Vital Signs Vital Name Observation Time Observation Value Comments Source Systolic blood 2023-04-24 18:27:00 164 mm[Hg] Univer sity of pressure [facility] Diastolic blood 2023-04-24 18:27:00 81 mm[Hg] Unive rsity of pressure [facility] Heart rate 2023-04-24 18:27:00 56 /min [facility] Oxygen saturation in 2023-04-24 18:27:00 94 /min [facility] blood by [facility] Pulse oximetry Branch Body temperature 2023-04-24 18:25:00 36.67 Meliza Univ ersity of [facility] Respiratory rate 2023-04-24 18:25:00 17 /min Univ ersity of [facility] Body height 2023-04-24 18:25:00 167.6 cm per pt Universi ty of [facility] Body weight 2023-04-24 18:25:00 71.623 kg Universi ty of [place] [facility] BMI 2023-04-24 18:25:00 25.49 kg/m2 Universi ty of [facility] Branch Systolic blood 2023-01-22 15:21:00 173 mm[Hg] Univer sity of pressure [facility] Diastolic blood 2023-01-22 15:21:00 90 mm[Hg] Unive rsity of pressure [facility] Heart rate 2023-01-22 15:21:00 54 /min Universi ty of [facility] Respiratory rate 2023-01-22 15:12:00 19 /min Univ ersity of [facility] Body height 2023-01-22 15:12:00 167.6 cm Universi ty [facility] [place] [facility] Body weight 2023-01-22 15:12:00 71.668 kg [facility]i ty [facility] [place] [facility] BMI 2023-01-22 15:12:00 25.50 kg/m2 Universi ty of [facility] Branch Oxygen saturation in 2023-01-22 15:12:00 97 /min University of Arterial blood by [place] [facility] Pulse oximetry Branch WEIGHT 2022-11-19 05:47:00 70.2 kg WEIGHT 2022-11-18 06:00:00 71.5 kg WEIGHT 2022-11-17 08:00:00 72.2 kg HEIGHT 2022-11-17 08:00:00 172.7 cm WEIGHT 2022-11-17 06:00:00 71.2 kg HEIGHT 2022-11-16 10:50:00 172.7 cm WEIGHT 2022-11-16 10:50:00 68.49 kg WEIGHT 2022-11-19 05:47:00 70.2 kg WEIGHT 2022-11-18 06:00:00 71.5 kg WEIGHT 2022-11-17 08:00:00 72.2 kg HEIGHT 2022-11-17 08:00:00 172.7 cm WEIGHT 2022-11-17 06:00:00 71.2 kg HEIGHT 2022-11-16 10:50:00 172.7 cm WEIGHT 2022-11-16 10:50:00 68.49 kg height 2022-04-15 08:20:00 67.50 [in_i] Common [facility] weight 2022-04-15 08:20:00 160.5 [lb_av] Common [facility] temperature 2022-04-15 08:20:00 99.1 [degF] Common [facility] bmi 2022-04-15 08:20:00 24.76 kg/m2 [facility] oximetry 2022-04-15 08:20:00 95 % Common [facility] respiratory rate 2022-04-15 08:20:00 17 /min Comm on [facility] blood pressure 2022-04-15 08:20:00 135 mm[Hg] [facility] - systolic [facility] blood pressure 2022-04-15 08:20:00 72 mm[Hg] [facility] - diastolic [facility] height 2022-04-15 08:20:00 67.50 [in_i] [facility] weight 2022-04-15 08:20:00 160.5 [lb_av] [facility] temperature 2022-04-15 08:20:00 99.1 [degF] Common S pirit [facility] bmi 2022-04-15 08:20:00 24.76 kg/m2 [facility] oximetry 2022-04-15 08:20:00 95 % Common [facility] respiratory rate 2022-04-15 08:20:00 17 /min Comm on [facility] blood pressure 2022-04-15 08:20:00 135 mm[Hg] Common [facility] - systolic [facility] blood pressure 2022-04-15 08:20:00 72 mm[Hg] [facility] - diastolic [facility] weight 2021-10-15 08:00:00 168.4 [lb_av] Common [facility] - [facility] temperature 2021-10-15 08:00:00 97.5 [degF] Common [facility] bmi 2021-10-15 08:00:00 25.98 kg/m2 Common S [facility] oximetry 2021-10-15 08:00:00 97 % [facility] respiratory rate 2021-10-15 08:00:00 17 /min Comm on [facility] blood pressure 2021-10-15 08:00:00 137 mm[Hg] Common [facility] - systolic [facility] blood pressure 2021-10-15 08:00:00 74 mm[Hg] Common [facility] - diastolic [facility] height 2021-10-15 08:00:00 67.50 [in_i] Common [facility] height 2021-04-24 10:30:00 67.50 [in_i] Common [facility] weight 2021-04-24 10:30:00 169.7 [lb_av] [facility] temperature 2021-04-24 10:30:00 98.2 [degF] Common [facility] bmi 2021-04-24 10:30:00 26.18 kg/m2 [facility] oximetry 2021-04-24 10:30:00 94 % Common S [facility] respiratory rate 2021-04-24 10:30:00 16 /min Comm on [facility] blood pressure 2021-04-24 10:30:00 135 mm[Hg] Common [facility] - systolic [facility] blood pressure 2021-04-24 10:30:00 62 mm[Hg] Common [facility] - diastolic [facility] height 2021-04-24 10:00:00 67.50 [in_i] Common [facility] weight 2021-04-24 10:00:00 169.7 [lb_av] [facility] temperature 2021-04-24 10:00:00 98.2 [degF] [facility] bmi 2021-04-24 10:00:00 26.18 kg/m2 [facility] oximetry 2021-04-24 10:00:00 94 % [facility] blood pressure 2021-04-24 10:00:00 135 mm[Hg] [facility] [place] [facility] blood pressure 2021-04-24 10:00:00 62 mm[Hg] [facility] [place] [facility] Heart rate 2022-11-20 09:00:00 103 /min [facility] Systolic blood 2022-11-20 08:55:00 123 mm[Hg] [facility] Diastolic blood 2022-11-20 08:55:00 64 mm[Hg] [facility] Body temperature 2022-11-20 08:55:00 36.72 Meliza [facility] Respiratory rate 2022-11-20 08:55:00 18 /min [facility] Oxygen saturation in 2022-11-20 08:55:00 93 /min [facility] Arterial blood by Medical Ce nter Pulse oximetry Body weight 2022-11-19 05:47:00 70.2 kg [facility] BMI 2022-11-19 05:47:00 23.54 kg/m2 [facility] Body height 2022-11-17 08:00:00 172.7 cm [facility] Procedures Procedure Date / Time Performed Performing Clinician Sour e BASIC METABOLIC PANEL 2022-11-20 03:46:00 Hugh Fernandez [facility] MAGNESIUM 2022-11-20 03:46:00 Hugh Fernandez [facility] CBC (HEMOGRAM ONLY) 2022-11-20 03:46:00 Hugh Fernandez [facility] MD INSERT 2022-11-19 07:31:24 Pernell Loera [facility] BASIC METABOLIC PANEL 2022-11-19 02:31:00 Hugh Fernandez [facility] MAGNESIUM 2022-11-19 02:31:00 Jim [facility] CBC (HEMOGRAM ONLY) 2022-11-19 02:31:00 Jim Hugh [facility] POCT-ACT 2022-11-18 18:20:00 [facility] CTA ABDOMEN & PELVIS 2022-11-18 17:07:00 Pernell Loera [facility] PREPARE RBC 2022-11-18 15:34:00 [facility] ABORH, MANUAL 2022-11-18 14:30:00 Venus Coburn [facility] POCT-ACT 2022-11-18 14:16:00 [facility] CBC (HEMOGRAM ONLY) 2022-11-18 13:48:00 Pernell Loera [facility] BASIC METABOLIC PANEL 2022-11-18 13:48:00 Pernell Loera [facility] MAGNESIUM 2022-11-18 13:48:00 Pernell Loera [facility] TYPE AND SCREEN, 2022-11-18 13:48:00 Pernell Loera [facility] AUTOMATED [facility] HC LAB PLATELET COUNT 2022-11-18 13:29:00 Pernell Loera [facility] AUTO [facility] POCT-ACT 2022-11-18 13:26:00 [facility] POCT-ACT 2022-11-18 11:54:00 [facility] POCT-ACT 2022-11-18 11:36:00 [facility] POCT-ACT 2022-11-18 11:07:00 Bandeali, [facility] POCT-ACT 2022-11-18 10:53:00 [facility] [place] POCT-ACT 2022-11-18 10:24:00 [facility] POCT-ACT 2022-11-18 10:02:00 [facility] CATHETERIZATION, HEART, 2022-11-18 09:13:00 [facility] LEFT, WITH PERCUTANEOUS [facility] CORONARY INTERVENTION APTT 2022-11-18 05:39:00 Jim [facility] BASIC METABOLIC PANEL 2022-11-18 03:37:00 Jim Hugh [facility] MAGNESIUM 2022-11-18 03:37:00 Jim [facility] CBC (HEMOGRAM ONLY) 2022-11-18 03:37:00 Jim [facility] HIGH SENSITIVITY 2022-11-18 03:37:00 CellTuan centeno [facility] PHOSPHORUS 2022-11-18 03:37:00 Pernell Loera [facility] APTT 2022-11-17 23:08:00 Jim Hugh [facility] CBC (HEMOGRAM ONLY) 2022-11-17 14:34:00 Jim Hugh [facility] APTT 2022-11-17 14:34:00 Jim [facility] 2D ECHO W/ DOPPLER 2022-11-17 12:03:30 [facility] APTT 2022-11-17 08:34:00 [facility] LIPID PANEL 2022-11-17 02:32:00 Jim [facility] TSH/FREE T4 IF INDICATED 2022-11-17 02:32:00 [facility] 2022-11-17 02:32:00 [facility] APTT 2022-11-17 02:32:00 [facility] BASIC METABOLIC PANEL 2022-11-17 02:32:[address] [facility] MAGNESIUM 2022-11-17 02:32:00 [facility] CBC (HEMOGRAM ONLY) 2022-11-17 02:32:00 [facility] APTT 2022-11-16 18:35:00 [facility] PLATELET COUNT 2022-11-16 18:34:00 [facility] CBC W/PLT COUNT & AUTO 2022-11-16 14:32:00 [facility] CBC W/PLT COUNT & AUTO 2022-11-16 14:32:00 [facility] BASIC METABOLIC PANEL 2022-11-16 14:32:[address] [facility] APTT 2022-11-16 14:32:00 [facility] HIGH SENSITIVITY 2022-11-16 14:32:00 [facility] TROPONIN [facility] B-TYPE NATRIURETIC 2022-11-16 14:32:00 Jim [facility] FACTOR (BNP) [facility] MAGNESIUM 2022-11-16 14:32:00 [facility] HEPATIC FUNCTION PANEL 2022-11-16 14:32:00 [facility]OV[facility] ([facility] 2022-11-16 13:08:00 Karen Peters pe [facility] REF LABS) R [facility] ECG 12-LEAD 2022-11-16 10:57:07 Unknown, Hl7 Doctor [facility] ECG 12-LEAD 2022-11-16 10:57:07 Unknown, Hl7 Doctor [facility] CARDIAC CATH REPORT - 2022-11-16 00:00:00 Provider, Default [facility] SCAN Scanning [facility] EKG-SCANNED 2022-11-16 00:00:00 Provider, Default [facility] St Ariela es Scanning [facility] VASCULAR DIAGRAM -SCAN 2022-11-16 00:00:00 Provider, Default [facility] Sc[facility] Plan of Care Planned Activity Planned Date Details Comments Source Future Scheduled 2023-06-[address] [facility] Test 00:00:00 (Season Ended) [code = Medic al Center INFLUENZA VACCINE (Season Ended)] Future Scheduled 2022-10-[address] [facility] Test 00:00:00 WELLNESS (YEAR 2 or Medical Center FIRST YEAR if no IPPE) [code = MEDICARE ANNUAL WELLNESS (YEAR 2 or FIRST YEAR if no IPPE)] Future Scheduled 2022-10-[address] [facility] Test 00:00:00 (12+) [code = Medical Center DEPRESSION SCREENING (12+)] Future Scheduled 2022-10-12 FALLS RISK SCREENING [facility] Test 00:00:00 [code = FALLS RISK Medical C enter SCREENING] Future Scheduled 2002 PNEUMOCOCCAL 65+ YRS [facility] Test 00:00:00 (1 - PCV) [code = Medical Ce nter PNEUMOCOCCAL 65+ YRS (1 - PCV)] Future Scheduled 1987 SHINGLES VACCINES ([address] [facility] Test 00:00:00 of 2) [code = SHINGLES Medic al Center VACCINES (1 of 2)] Future Scheduled 1956 DTAP/TDAP/TD VACCINES [facility] Test 00:00:00 (1 - Tdap) [code = Medical C enter DTAP/TDAP/TD VACCINES (1 - Tdap)] Future Scheduled [address] [facility] Test 00:00:00 Counseling and Medical Cente r Screening (12+) [code = Tobacco Cessation Counseling and Screening (12+)] Future Scheduled 1938-02-02 COVID-19 VACCINE (#1) [facility] 00:00:00 [code = COVID-[address] VACCINE (#1)] Encounters Start End Encounter Admission Attending Care Care Encounter Source Date/Time Date/Time Type Type Clinicians Facility Department ID 2022-11-16 Hospital ER [facility], [facility] [id number] [facility] [facility] 20[facility]-04-11 Outpatient Pfeiffer, STLMLC STLC [id number] Common 09:23:00 Mateo [facility] 2021-11-06 Outpatient Pfeiffer, STLMLC STLMLC [id number] Common 14:30:22 Mateo [facility] 2021-11-06 Outpatient Pfeiffer, STLMLC STLC [id number] Common 14:30:13 Mateo [facility] 2021-11-06 Outpatient Pfeiffer, STLMLC STLC [id number] Common 12:31:19 Mateo 89938 [facility] 2021-11-06 Outpatient Pfeiffer, STLMLC STLC [id number] Common 11:59:39 Mateo 30788 [facility] 2021-11-06 Outpatient Pfeiffer, STLMLC STLC [id number] Common 11:53:01 Mateo 64363 [facility] 2021-11-06 Outpatient Pfeiffer, STLMLC STLC [id number] Common 11:19:18 Mateo 62814 [facility] 2021-11-06 Outpatient Pfeiffer, STLMLC STLC [id number] Common 11:18:11 Mateo 66081 [facility] 2021-11-06 Outpatient Pfeiffer, STLMLC STLC [id number] Common 11:04:01 Mateo 70557 [facility] 2023-04-24 2023-04-24 Outpatient R JALEN [facility] [id number] Univers 12:37:21 23:59:00 TERESO romero [facility] 2023-04-24 2023-04-24 Office Jalen [facility] [id number] Univers 14:00:00 14:00:00 Visit Tereso MARK [id number] [place] [id number] [place]ical NAL 059 [facility] 2023-01-22 2023-01-22 [facility] [id number] Univers 10:20:00 10:37:32 Visit Tereso MAKR 350.1.13.10 it[place] [id number] [place] dical NAL 9 [facility] 2023-01-22 2023-01-22 [facility] [id number] Univers 10:20:00 10:37:32 JACQUIEISELA coletteandres o f [facility] 2022-11-21 2022-11-[address] [facility] [id number] [facility] 00:[facility]00 00:00:00 ion Serenity Stubbs [facility] 2022-11-16 2022-11-20 Hospital ER Wallace Peters [facility] [id number] [facility] 10:56:00 10:59:00 Encounter Darion [facility] 2022-11-16 2022-11-20 [facility] [id number] [facility] 10:56:00 10:59:00 [facility] 2022-11-18 2022-11-18 Surgery Bandeali, [facility] [id number] 08:51:00 11:50:00 [facility] 2022-11-17 2022-11-17 Outside No, Pcp [facility] [id number] 00:00:00 00:00:00 Orders Sl Tx [facility] 2022-11-16 2022-11-16 Travel [facility] [id number] [facility] 00:[facility] 00:00:00 [facility] 2022-11-16 2022-11-[address] [facility] [id number] 00:00:00 00:00:00 Only [facility] 2022-04-15 2022-04-15 OFFICE STLMLC STLMLC [id number] Co mmon 00:00:00 00:00:00 VISIT Spirit ESTAB PT - CHI LEVEL 4 [facility] 2022-04-15 2022-04-15 SUB ANNUAL STLMLC STLMLC [id number] Common 00:00:00 00:00:00 MCR Spirit WELLNESS - CHI VISIT [facility] 2021-10-15 2021-10-15 OFFICE STLMLC STLMLC [id number] Co mmon 00:00:00 00:00:00 VISIT Spirit ESTAB PT - CHI LEVEL 4 [facility] 2021-04-24 2021-04-24 OFFICE STLMLC STLMLC [id number] Co mmon 00:00:00 00:00:00 VISIT Spirit ESTAB PT - CHI LEVEL 4 [facility] 2021-04-24 2021-04-24 SUB ANNUAL STLMLC STLMLC [id number] Common 00:00:00 00:00:00 MCR Spirit WELLNESS - CHI VISIT [facility] 2020-12-04 2020-12-04 Outpatient STLMLC STLMLC [id number] Common 00:00:00 00:00:00 [facility] 2020-08-08 2020-08-08 Outpatient STLMLC STLMLC [id number] Common 00:00:00 00:00:00 [facility] 2020-05-09 2020-05-09 Outpatient [facility] [id number] Common 08:00:00 08:00:[address] [facility] 2020-02-07 2020-02-07 Outpatient [facility] [id number] Common 08:15:00 08:15:[address] [facility] 2019-11-30 2019-11-30 Outpatient Leandro [facility] [id number] [facility] 07:23:00 07:23:00 _A_AH 24601 [facility] 2019-11-09 2019-11-09 Outpatient [facility] [id number] Common 09:00:00 09:00:[address] [facility] Results Test Description Test Time Test Comments Results Result Comments Source MAGNESIUM 2022-11-20 04:58:05 Test Item Value Reference Range Interpretation Comme nts MAGNESIUM (BEAKER) (test code = 627) 1.9 mg/dL 1.6-2.6 Orthopedic Assistant ID - BSBASIC METABOLIC [id number] 04:58:04 Test Item Value Reference Range Interpretation Comments SODIUM (BEAKER) 136 meq/L 136-145 (test code = 381) POTASSIUM 4.2 meq/L 3.5-5.1 (BEAKER) (test code = 379) CHLORIDE (BEAKER) 103 meq/L 98-107 (test code = 382) CO2 (BEAKER) 24 meq/L 22-29 (test code = 355) BLOOD UREA 21 mg/dL 7-21 NITROGEN (BEAKER) (test code = 354) CREATININE 0.65 mg/dL 0.57-1.25 (BEAKER) (test code = 358) GLUCOSE RANDOM 112 mg/dL 70-105 H (BEAKER) (test code = 652) CALCIUM (BEAKER) 8.3 mg/dL 8.4-10.2 L (test code = 697) EGFR (BEAKER) 92 Interpretatio n of eGFR (test code = mL/min/1.73 values Stage De scription 1092) sq m Result G1 Cami l or high >=90 G2 Mildly decreased 60-89 G3a Mild ly to moderately 45-5 9 G3b Moderately to s everely 30-44 G4 Severl y decreased 15-29 G5 Kidney failure <15Reported eGF R is based on the CKD-EPI 2020 equation that d oes not use a race coefficientEsti mated GFR is not as accur ate as Creatinine Erica yamilet in predicting glom erular filtration rate . Estimated GFR is not appl icable for dialysis patien ts Orthopedic Assistant ID - BSCBC (HEMOGRAM ONLY)2022-11-20 04:38:15 Test Item Value Reference Range Interpretation Comments WHITE BLOOD CELL COUNT (BEAKER) 8.3 K/ L 3.5-10.5 (test code = 775) RED BLOOD CELL COUNT (BEAKER) 3.74 M/ L 4.63-6.08 L (test code = 761) HEMOGLOBIN (BEAKER) (test code = 11.9 GM/DL 13.7-17.5 L 410) HEMATOCRIT (BEAKER) (test code = 35.2 % 40.1-51.0 L 411) MEAN CORPUSCULAR VOLUME (BEAKER) 94 fL 79-92 H (test code = 753) MEAN CORPUSCULAR HEMOGLOBIN 31.8 pg 25.7-32.2 (BEAKER) (test code = 751) MEAN CORPUSCULAR HEMOGLOBIN CONC 33.8 GM/DL 32.3-36.5 (BEAKER) (test code = 752) RED CELL DISTRIBUTION WIDTH 13.6 % 11.6-14.4 (BEAKER) (test code = 412) PLATELET COUNT (BEAKER) (test 212 K/CU MM 150-450 code = 756) MEAN PLATELET VOLUME (BEAKER) 10.4 fL 9.4-12.4 (test code = 754) NUCLEATED RED BLOOD CELLS 0 /100 WBC 0-0 (BEAKER) (test code = 413) PLATELET AGGREGATION: DRUG [id number] 17:22:58 Test Item Value Reference Range Interpretation Comments ARACHADONIC ACID 4 % 65-100 L RESULT(BEAKER) (test code = 2138) PLATELET AGG DRUG Decreased response to INTERPRETATION (BEAKER) arachidonic acid (test code = 2408) suggests aspirin-like effect. PLATELET AGG DRUG Decreased aggregation INTERPRETATION (BEAKER) with ADP which (test code = 001625) indicates platelet dysfunction that may be due to medication effect, uremia, or other platelet function disorders. Clinical correlation is required. [id number] Dm Sidhu M.D. (BEAKER) (test code = (electonic signature) 3403) PLATELET COUNT AGG 250 K/CU MM 150-450 (BEAKER) (test code = 2656) ADP (BEAKER) (test code < % 62-100 L = 4654) PLATELET RICH 256 k/cu mm 200-300 PLASMA(BEAKER) (test code = 2134) Platelet function studies by aggregation methodology on samples with platelet count <75,000/CU MMare unreliable; platelet function assessment should not be based on a single test.Orthopedic Assistant ID - [id number] 03:12:02 Test Item Value Reference Range Interpretation Comments MAGNESIUM (BEAKER) (test code = 2.2 mg/dL 1.6-2.6 627) Orthopedic Assistant ID - BSBASI METABOLIC [id number] 03:12:01 Test Item Value Reference Range Interpretation Comments SODIUM (BEAKER) 130 meq/L 136-145 L (test code = 381) POTASSIUM 4.0 meq/L 3.5-5.1 (BEAKER) (test code = 379) CHLORIDE (BEAKER) 102 meq/L 98-107 (test code = 382) CO2 (BEAKER) 19 meq/L 22-29 L (test code = 355) BLOOD UREA 19 mg/dL 7-21 NITROGEN (BEAKER) (test code = 354) CREATININE 0.68 mg/dL 0.57-1.25 (BEAKER) (test code = 358) GLUCOSE RANDOM 133 mg/dL 70-105 H (BEAKER) (test code = 652) CALCIUM (BEAKER) 8.1 mg/dL 8.4-10.2 L (test code = 697) EGFR (BEAKER) 91 Interpretatio n of eGFR (test code = mL/min/1.73 values Stage De scription 1092) sq m Result G1 Cami l or high >=90 G2 Mildly decreased 60-89 G3a Mildl y to moderately 45-5 9 G3b Moderately to s everely 30-44 G4 Severl y decreased 15-29 G5 Kidney failure <15Reported eGF R is based on the CKD-EPI 2020 equation that d oes not use a race coefficientEsti mated GFR is not as accur ate as Creatinine Erica yamilet in predicting glom erular filtration rate . Estimated GFR is not appl icable for dialysis patien ts Orthopedic Assistant ID - BSCBC (HEMOGRAM ONLY)2022-11-19 02:48:20 Test Item Value Reference Range Interpretation Comments WHITE BLOOD CELL COUNT (BEAKER) 11.7 K/ L 3.5-10.5 H (test code = 775) RED BLOOD CELL COUNT (BEAKER) 3.90 M/ L 4.63-6.08 L (test code = 761) HEMOGLOBIN (BEAKER) (test code = 12.4 GM/DL 13.7-17.5 L 410) HEMATOCRIT (BEAKER) (test code = 37.1 % 40.1-51.0 L 411) MEAN CORPUSCULAR VOLUME (BEAKER) 95 fL 79-92 H (test code = 753) MEAN CORPUSCULAR HEMOGLOBIN 31.8 pg 25.7-32.2 (BEAKER) (test code = 751) MEAN CORPUSCULAR HEMOGLOBIN CONC 33.4 GM/DL 32.3-36.5 (BEAKER) (test code = 752) RED CELL DISTRIBUTION WIDTH 14.0 % 11.6-14.4 (BEAKER) (test code = 412) PLATELET COUNT (BEAKER) (test 210 K/CU MM 150-450 code = 756) MEAN PLATELET VOLUME (BEAKER) 9.6 fL 9.4-12.4 (test code = 754) NUCLEATED RED BLOOD CELLS 0 /100 WBC 0-0 (BEAKER) (test code = 413) POC ACTIVATED CLOTTING [id number] 18:48:37 Test Item Value Reference Range Interpretation Comments Activated Clotting Time 82 sec : 74 -137 seconds, (test code = 3184-9) Elder e: TESTED AT [facility] [address] [facility], [address]: Orthopedic Assistant/Techni zeferino ID = [id number] for Moises zhou Loren [facility][id number] 18:48:37 Test Item Value Reference Range Interpretation Comments ACTIVATED CLOTTING TIME 82 sec : 74 -137 seconds, (BEAKER) (test code = Baseli ne: TESTED AT [facility]) [facility] [address] [place] [address], [address]: Orthopedic Assistant/Techni zeferino ID = [id number] for Frankie Monroya CT, CTA [id number] 17:39:00R groin hematoma, hemorrhagic shockUnlisted Reason for Exam - Click Yes and Enter Reason Below->No [facility] : 1935 Sex: MFINAL REPORT ABDOMINAL AND PELVIS CT DATED 11/18/2022 CLINICAL INFORMATION: Retroperitonealhematoma suspected TECHNIQUE: Axial images of the abdomen and pelvis were obtained from diaphragm tothe pubic symphysis with and without intravenous contrast. This exam was performed according to our d epartmental dose-optimization program, which includes automated exposure control, adjustment of the mA and/or kV according to patient size and/or use of interactive reconstruction technique. COMMENT: Liver and spleen are normal in size without focal abnormality. Gallbladder is contracted. No gallstoneor biliary dilatation is noted. Pancreas is normal in caliber. A 1.6 x 2.3 cm cystic lesion is seen adjacent to the head and uncinate process of the pancreas suggestive of IPMN. No enhancing pancreaticmass or pancreatic duct dilatation is present. Both kidneys are normal in size and functioning with bilateral excretion. No hydronephrosis, hydroureter, urolithiasis is seen. A 6 mm cyst is seen in theinferior pole right kidney. A 6 mm cyst is seen in the midpole left kidney. There is soft tissue stranding within bilateral Gerota's fascia. 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 The small bowel and appendix are normal in caliber. Vascular calcifications seen in the abdominal aorta, splenic, superior mesenteric, and bilateral iliac arteries. Prostate is normal in size. The urinary bladder is contracted. There is severe muscular atrophy involving the left thigh. Subcutaneous soft tissue stranding is seen in the proximal right thigh. A 1.6 x 12.1 x 5.6 cm hyperdense collection is seen in the subcutaneous soft tissue in the right inguinal region suspicious for hematoma. No retroperitoneal hematoma or active GI bleeding is present. IMPRESSION: 1. Cystic lesion adjacent to the head and uncinate process of the pancreas suggestive of IPMN.2. Bilateral renal cysts.3. Noretroperitoneal hematoma or active GI bleeding.4. Soft tissue stranding in the right proximal thigh with hyperdense collection in the subcutaneous soft tissue suggestive of hematoma. Signed: Marah Arreguinort Verified Date/Time: 11/18/2022 17:39:24 Reading Location: [address] Body Reading Room Prepare [id number] 15:34:00 Test Item Value Reference Range Interpretation Comments CROSSMATCH (test code = 2264) COMPATIBLE Unit ABO (test code = B Neg 6302482) UNIT NUMBER (test code = [id number] 934-0) Status (test code = 5432505) READY Blood Bank Product (test code RED BLOOD CELLS = 2263) PRODUCT CODE (test code = W7624G13 933-2) [facility][id number] 14:42:17 Test Item Value Reference Range Interpretation Comments ACTIVATED CLOTTING TIME 149 sec : 74 -137 seconds, (BEAKER) (test code = Baseli ne: TESTED AT 441) [facility] [address] [facility] [place], [address]: Orthopedic Assistant/Techni zeferino ID = [id number] for Amber [place] BASIC METABOLIC [id number] 14:40:20 Test Item Value Reference Range Interpretation Comments SODIUM (BEAKER) 131 meq/L 136-145 L (test code = 381) POTASSIUM 4.1 meq/L 3.5-5.1 (BEAKER) (test code = 379) CHLORIDE (BEAKER) 102 meq/L 98-107 (test code = 382) CO2 (BEAKER) 21 meq/L 22-29 L (test code = 355) BLOOD UREA 14 mg/dL 7-21 NITROGEN (BEAKER) (test code = 354) CREATININE 0.67 mg/dL 0.57-1.25 (BEAKER) (test code = 358) GLUCOSE RANDOM 141 mg/dL 70-105 H (BEAKER) (test code = 652) CALCIUM (BEAKER) 8.0 mg/dL 8.4-10.2 L (test code = 697) EGFR (BEAKER) 91 Interpretatio n of eGFR (test code = mL/min/1.73 values Stage De scription 1092) sq m Result G1 Cami l or high >=90 G2 Mildly decreased 60-89 G3a Mildl y to moderately 45-5 9 G3b Moderately to s everely 30-44 G4 Severl y decreased 15-29 G5 Kidney failure <15Reported eGF R is based on the CKD-EPI 2020 equation that d oes not use a race coefficientEsti mated GFR is not as accur ate as Creatinine Erica woodard in predicting glom erular filtration rate . Estimated GFR is not appl icable for dialysis patien ts Orthopedic Assistant ID - [id number] 14:40:20 Test Item Value Reference Range Interpretation Comments MAGNESIUM (BEAKER) (test code = 2.1 mg/dL 1.6-2.6 627) Orthopedic Assistant ID - MITCHCBC (HEMOGRAM ONLY)2022-11-18 14:20:14 Test Item Value Reference Range Interpretation Comments WHITE BLOOD CELL COUNT (BEAKER) 12.2 K/ L 3.5-10.5 H (test code = 775) RED BLOOD CELL COUNT (BEAKER) 4.20 M/ L 4.63-6.08 L (test code = 761) HEMOGLOBIN (BEAKER) (test code = 13.4 GM/DL 13.7-17.5 L 410) HEMATOCRIT (BEAKER) (test code = 39.3 % 40.1-51.0 L 411) MEAN CORPUSCULAR VOLUME (BEAKER) 94 fL 79-92 H (test code = 753) MEAN CORPUSCULAR HEMOGLOBIN 31.9 pg 25.7-32.2 (BEAKER) (test code = 751) MEAN CORPUSCULAR HEMOGLOBIN CONC 34.1 GM/DL 32.3-36.5 (BEAKER) (test code = 752) RED CELL DISTRIBUTION WIDTH 13.7 % 11.6-14.4 (BEAKER) (test code = 412) PLATELET COUNT (BEAKER) (test 260 K/CU MM 150-450 code = 756) MEAN PLATELET VOLUME (BEAKER) 9.3 fL 9.4-12.4 L (test code = 754) NUCLEATED RED BLOOD CELLS 0 /100 WBC 0-0 (BEAKER) (test code = 413) [id number] 14:11:10 Test Item Value Reference Range Interpretation Comments PHOSPHORUS (BEAKER) 2.8 mg/dL 2.3-4.7 Specimen slightly (test code = 604) hemolyzed Orthopedic Assistant ID - [id number] 13:41:28 Test Item Value Reference Range Interpretation Comments ACTIVATED CLOTTING TIME 197 sec : 74 -137 seconds, (BEAKER) (test code = Baseli ne: TESTED AT 441) [facility] [address] [facility], [address]: Orthopedic Assistant/Techni zeferino ID = [id number] for Sh ah, Amber [id number] 12:11:48 Test Item Value Reference Range Interpretation Comments ACTIVATED CLOTTING TIME 257 sec : 74 -137 seconds, (BEAKER) (test code = Baseli ne: TESTED AT 441) [address], [facility] 30: Orthopedic Assistant/Techni zeferino ID = [id number] for Do laly, Ralph [id number] 11:54:11 Test Item Value Reference Range Interpretation Comments ACTIVATED CLOTTING TIME 329 sec : 74 -137 seconds, (BEAKER) (test code = Baseli ne: TESTED AT 441) [place] [address] 30: Orthopedic Assistant/Techni zeferino ID = [id number] for Do laly, Ralph [id number] 11:24:31 Test Item Value Reference Range Interpretation Comments ACTIVATED CLOTTING TIME 311 sec : 74 -137 seconds, (BEAKER) (test code = Baseli ne: TESTED AT [facility]) [place] [address] 30: Orthopedic Assistant/Techni zeferino ID = [id number] for Do laly, Ralph [id number] 11:13:35 Test Item Value Reference Range Interpretation Comments ACTIVATED CLOTTING TIME 600 sec : 74 -137 seconds, (BEAKER) (test code = Baseli ne: TESTED AT 441) [place] [address] 30: Orthopedic Assistant/Techni zeferino ID = [id number] for Do laly, Ralph [id number] 10:42:40 Test Item Value Reference Range Interpretation Comments ACTIVATED CLOTTING TIME 305 sec : 74 -137 seconds, (BEAKER) (test code = Baseli ne: TESTED AT 441) [place] [address] 30: Orthopedic Assistant/Techni zeferino ID = [id number] for Do laly, Ralph [id number] 10:20:38 Test Item Value Reference Range Interpretation Comments ACTIVATED CLOTTING TIME 347 sec : 74 -137 seconds, (BEAKER) (test code = Baseli ne: TESTED AT 441) [place] [address] 30: Orthopedic Assistant/Techni zeferino ID = [id number] for Do laly, Ralph [id number] 06:18:35 Test Item Value Reference Range Interpretation Comments PARTIAL THROMBOPLASTIN TIME 55.5 seconds 22.5-36.0 H (BEAKER) (test code = 760) BASIC METABOLIC [id number] 04:53:57 Test Item Value Reference Range Interpretation Comments SODIUM (BEAKER) 130 meq/L 136-145 L (test code = 381) POTASSIUM 3.7 meq/L 3.5-5.1 (BEAKER) (test code = 379) CHLORIDE (BEAKER) 98 meq/L 98-107 (test code = 382) CO2 (BEAKER) 17 meq/L 22-29 L (test code = 355) BLOOD UREA 13 mg/dL 7-21 NITROGEN (BEAKER) (test code = 354) CREATININE 0.64 mg/dL 0.57-1.25 (BEAKER) (test code = 358) GLUCOSE RANDOM 114 mg/dL 70-105 H (BEAKER) (test code = 652) CALCIUM (BEAKER) 8.4 mg/dL 8.4-10.2 (test code = 697) EGFR (BEAKER) 92 Interpretatio n of eGFR (test code = mL/min/1.73 values Stage De scription 1092) sq m Result G1 Norm al or high >=90 G2 Mildly decreased 60-89 G3a Mildl y to moderately 45-5 9 G3b Moderately to s everely 30-44 G4 Severl y decreased 15-29 G5 Kidney failure <15Reported eGF R is based on the CKD-EPI 2020 equation that d oes not use a race coefficientEsti mated GFR is not as accur ate as Creatinine Erica woodard in predicting glom erular filtration rate . Estimated GFR is not appl icable for dialysis patien ts Orthopedic Assistant ID - BSOperator ID - [id number] 04:27:16 Test Item Value Reference Range Interpretation Comments MAGNESIUM (BEAKER) (test code = 1.9 mg/dL 1.6-2.6 627) Orthopedic Assistant ID - BSHIGH SENSITIVITY TROPONIN [id number] 04:24:53 Test Item Value Reference Range Interpretation Comments HIGH SENSITIVITY TROPONIN I (test 1774 pg/ml <=35 HH code = 4118336) Orthopedic Assistant ID - BSThe [employer] LINE MAINTENANCE SUPERVISOR STAT High Sensitivity Troponin-I results should be used in conjunctionwith other diagnostic information such as ECG, clinical observations and information, and patient symptoms to aid in the diagnosis of [place].CBC (HEMOGRAM ONLY)2022-11-18 03:58:02 Test Item Value Reference Range Interpretation Comments WHITE BLOOD CELL COUNT (BEAKER) 8.4 K/ L 3.5-10.5 (test code = 775) RED BLOOD CELL COUNT (BEAKER) 4.71 M/ L 4.63-6.08 (test code = 761) HEMOGLOBIN (BEAKER) (test code = 15.0 GM/DL 13.7-17.5 410) HEMATOCRIT (BEAKER) (test code = 43.7 % 40.1-51.0 411) MEAN CORPUSCULAR VOLUME (BEAKER) 93 fL 79-92 H (test code = 753) MEAN CORPUSCULAR HEMOGLOBIN 31.8 pg 25.7-32.2 (BEAKER) (test code = 751) MEAN CORPUSCULAR HEMOGLOBIN CONC 34.3 GM/DL 32.3-36.5 (BEAKER) (test code = 752) RED CELL DISTRIBUTION WIDTH 13.3 % 11.6-14.4 (BEAKER) (test code = 412) PLATELET COUNT (BEAKER) (test 229 K/CU MM 150-450 code = 756) MEAN PLATELET VOLUME (BEAKER) 9.7 fL 9.4-12.4 (test code = 754) NUCLEATED RED BLOOD CELLS 0 /100 WBC 0-0 (BEAKER) (test code = 413) [id number] 23:34:43 Test Item Value Reference Range Interpretation Comments PARTIAL THROMBOPLASTIN TIME 39.4 seconds 22.5-36.0 H (BEAKER) (test code = 760) 2D Echo W/Doppler(CW/PW/Color)2022-11-17 17:39:17Ejection FractionSLEH ECHO HEARTLAB MKCKESSON [facility] 15:00:18 Test Item Value Reference Range Interpretation Comments PARTIAL THROMBOPLASTIN TIME 107.9 seconds 22.5-36.0 H (BEAKER) (test code = 760) CBC (HEMOGRAM ONLY)2022-11-17 14:50:14 Test Item Value Reference Range Interpretation Comments WHITE BLOOD CELL COUNT (BEAKER) 7.7 K/ L 3.5-10.5 (test code = 775) RED BLOOD CELL COUNT (BEAKER) 4.41 M/ L 4.63-6.08 L (test code = 761) HEMOGLOBIN (BEAKER) (test code = 14.2 GM/DL 13.7-17.5 410) HEMATOCRIT (BEAKER) (test code = 41.4 % 40.1-51.0 411) MEAN CORPUSCULAR VOLUME (BEAKER) 94 fL 79-92 H (test code = 753) MEAN CORPUSCULAR HEMOGLOBIN 32.2 pg 25.7-32.2 (BEAKER) (test code = 751) MEAN CORPUSCULAR HEMOGLOBIN CONC 34.3 GM/DL 32.3-36.5 (BEAKER) (test code = 752) RED CELL DISTRIBUTION WIDTH 13.4 % 11.6-14.4 (BEAKER) (test code = 412) PLATELET COUNT (BEAKER) (test 208 K/CU MM 150-450 code = 756) MEAN PLATELET VOLUME (BEAKER) 9.5 fL 9.4-12.4 (test code = 754) NUCLEATED RED BLOOD CELLS 0 /100 WBC 0-0 (BEAKER) (test code = 413) HEMOGLOBIN [id number] 14:47:22 Test Item Value Reference Range Interpretation Comments HEMOGLOBIN A1C 5.4 % See_Comment [Automated m essage] ELECTROPHORESIS (BEAKER) The system which (test code = 3811) generated this result transmitted ref erence range: <=5.6%. The reference range was not used to int erpret this result as normal/abnormal . "The A1c is measured using a NGSP-certified method. HbA1c value equal to or greater than 6.5% as thediagnosis cutoff for diabetes. An HbA1c value of 5.7- 6.4% indicates increased risk for diabetes (prediabetes)."Orthopedic Assistant ID - ADMAPTT 2022-11-17 08:54:56 Test Item Value Reference Range Interpretation Comments PARTIAL THROMBOPLASTIN TIME 78.8 seconds 22.5-36.0 H (BEAKER) (test code = 760) TSH/FREE T4 IF [id number] 03:32:49 Test Item Value Reference Range Interpretation Comments THYROID STIMULATING HORMONE 3.742 uIU/mL 0.350-4.940 (BEAKER) (test code = 772) Orthopedic Assistant ID - PIAYA LLIPID [id number] 03:02:28 Test Item Value Reference Range Interpretation Comments TRIGLYCERIDES (BEAKER) (test code = 61 mg/dL 540) CHOLESTEROL (BEAKER) (test code = 137 mg/dL 631) HDL CHOLESTEROL (BEAKER) (test code 61 mg/dL = 976) LDL CHOLESTEROL CALCULATED (BEAKER) 64 mg/dL (test code = 633) Triglyceride Reference Range: Low Risk <150 Borderline 150-199 High Risk 200- 499 Very High Risk >=500Cholesterol Reference Range: Low Risk <200 Borderline 200-239 High Risk >240HDL Cholesterol Reference Range: Low Risk >=60 High Risk <40LDL Cholesterol Reference Range: Optimal <100 Near Optimal 100-129 Borderline 130-159 High 160-189 Very High >=190 Orthopedic Assistant ID Therese HEREDIA LBASIC METABOLIC [id number] 03:02:27 Test Item Value Reference Range Interpretation Comments SODIUM (BEAKER) 130 meq/L 136-145 L (test code = 381) POTASSIUM 3.4 meq/L 3.5-5.1 L (BEAKER) (test code = 379) CHLORIDE (BEAKER) 96 meq/L 98-107 L (test code = 382) CO2 (BEAKER) 22 meq/L 22-29 (test code = 355) BLOOD UREA 15 mg/dL 7-21 NITROGEN (BEAKER) (test code = 354) CREATININE 0.79 mg/dL 0.57-1.25 (BEAKER) (test code = 358) GLUCOSE RANDOM 115 mg/dL 70-105 H (BEAKER) (test code = 652) CALCIUM (BEAKER) 8.6 mg/dL 8.4-10.2 (test code = 697) EGFR (BEAKER) 87 Interpretatio n of eGFR (test code = mL/min/1.73 values Stage De scription 1092) sq m Result G1 Cami l or high >=90 G2 Mildly decreased 60-89 G3a Mildl y to moderately 45-5 9 G3b Moderately to s everely 30-44 G4 Severl y decreased 15-29 G5 Kidney failure <15Reported eGF R is based on the CKD-EPI 2020 equation that d oes not use a race coefficientEsti mated GFR is not as accur ate as Creatinine Erica isbellce in predicting glom erular filtration rate . Estimated GFR is not appl icable for dialysis patien ts Orthopedic Assistant ID - YAN [id number] 03:02:27 Test Item Value Reference Range Interpretation Comments MAGNESIUM (BEAKER) (test code = 1.7 mg/dL 1.6-2.6 627) Orthopedic Assistant ID - YAN [id number] 03:01:03 Test Item Value Reference Range Interpretation Comments PARTIAL THROMBOPLASTIN TIME 51.5 seconds 22.5-36.0 H (BEAKER) (test code = 760) CBC (HEMOGRAM ONLY)2022-11-17 02:42:59 Test Item Value Reference Range Interpretation Comments WHITE BLOOD CELL COUNT (BEAKER) 6.6 K/ L 3.5-10.5 (test code = 775) RED BLOOD CELL COUNT (BEAKER) 4.49 M/ L 4.63-6.08 L (test code = 761) HEMOGLOBIN (BEAKER) (test code = 14.3 GM/DL 13.7-17.5 410) HEMATOCRIT (BEAKER) (test code = 41.4 % 40.1-51.0 411) MEAN CORPUSCULAR VOLUME (BEAKER) 92 fL 79-92 (test code = 753) MEAN CORPUSCULAR HEMOGLOBIN 31.8 pg 25.7-32.2 (BEAKER) (test code = 751) MEAN CORPUSCULAR HEMOGLOBIN CONC 34.5 GM/DL 32.3-36.5 (BEAKER) (test code = 752) RED CELL DISTRIBUTION WIDTH 13.3 % 11.6-14.4 (BEAKER) (test code = 412) PLATELET COUNT (BEAKER) (test 209 K/CU MM 150-450 code = 756) MEAN PLATELET VOLUME (BEAKER) 9.7 fL 9.4-12.4 (test code = 754) NUCLEATED RED BLOOD CELLS 0 /100 WBC 0-0 (BEAKER) (test code = 413) [id number] 18:54:42 Test Item Value Reference Range Interpretation Comments PARTIAL THROMBOPLASTIN TIME 26.1 seconds 22.5-36.0 (BEAKER) (test code = 760) PLATELET [id number] 18:45:41 Test Item Value Reference Range Interpretation Comments PLATELET COUNT (BEAKER) (test 225 K/CU MM 150-450 code = 756) Orthopedic Assistant ID - SilvioHIGH SENSITIVITY TROPONIN [id number] 15:16:43 Test Item Value Reference Range Interpretation Comments HIGH SENSITIVITY TROPONIN I (test 2211 pg/ml <=35 HH code = 1621423) Orthopedic Assistant ID - NICK SThe [employer]INTENANCE SUPERVISOR STAT High Sensitivity Troponin-I results should be used in conjunction with other diagnostic information such as ECG, clinical observations and information, and patient symptoms to aid in the diagnosis of [place].B-TYPE NATRIURETIC FACTOR (BNP)2022-11-16 15:02:34 Test Item Value Reference Range Interpretation Comments B-TYPE NATRIURETIC PEPTIDE (BEAKER) 153 pg/mL 0-100 H (test code = 700) Orthopedic Assistant ID - NICK SBASIC METABOLIC [id number] 14:56:37 Test Item Value Reference Range Interpretation Comments SODIUM (BEAKER) 128 meq/L 136-145 L (test code = 381) POTASSIUM 3.7 meq/L 3.5-5.1 (BEAKER) (test code = 379) CHLORIDE (BEAKER) 95 meq/L 98-107 L (test code = 382) CO2 (BEAKER) 24 meq/L 22-29 (test code = 355) BLOOD UREA 12 mg/dL 7-21 NITROGEN (BEAKER) (test code = 354) CREATININE 0.71 mg/dL 0.57-1.25 (BEAKER) (test code = 358) GLUCOSE RANDOM 110 mg/dL 70-105 H (BEAKER) (test code = 652) CALCIUM (BEAKER) 9.0 mg/dL 8.4-10.2 (test code = 697) EGFR (BEAKER) 90 Interpretatio n of eGFR (test code = mL/min/1.73 values Stage De scription 1092) sq m Result G1 Cami l or high >=90 G2 Mildly decreased 60-89 G3a Mildl y to moderately 45-5 9 G3b Moderately to s everely 30-44 G4 Severl y decreased 15-29 G5 Kidney failure <15Reported eGF R is based on the CKD-EPI 2020 equation that d oes not use a race coefficientEsti mated GFR is not as accur ate as Creatinine Erica woodard in predicting glom erular filtration rate . Estimated GFR i s not applicable for dialysis patients Orthopedic Assistant ID Therese ROMERO [id number] 14:56:37 Test Item Value Reference Range Interpretation Comments MAGNESIUM (BEAKER) (test code = 1.7 mg/dL 1.6-2.6 627) Orthopedic Assistant ID Therese ROMERO SHEPATIC FUNCTION [id number] 14:56:37 Test Item Value Reference Range Interpretation Comments TOTAL PROTEIN (BEAKER) (test code = 6.5 gm/dL 6.0-8.3 770) ALBUMIN (BEAKER) (test code = 1145) 3.8 g/dL 3.5-5.0 BILIRUBIN TOTAL (BEAKER) (test code 1.2 mg/dL 0.2-1.2 = 377) BILIRUBIN DIRECT (BEAKER) (test 0.4 mg/dL 0.1-0.5 code = 706) ALKALINE PHOSPHATASE (BEAKER) (test 37 U/L 40-150 L code = 346) AST (SGOT) (BEAKER) (test code = 34 U/L 5-34 353) ALT (SGPT) (BEAKER) (test code = 14 U/L 6-55 347) Orthopedic Assistant ID Therese ROMERO [id number] 14:52:17 Test Item Value Reference Range Interpretation Comments PARTIAL THROMBOPLASTIN TIME 25.8 seconds 22.5-36.0 (BEAKER) (test code = 760) CBC W/PLT COUNT & AUTO [id number] 14:39:13 Test Item Value Reference Range Interpretation Comments WHITE BLOOD CELL COUNT (BEAKER) 6.7 K/ L 3.5-10.5 (test code = 775) RED BLOOD CELL COUNT (BEAKER) 4.57 M/ L 4.63-6.08 L (test code = 761) HEMOGLOBIN (BEAKER) (test code = 14.6 GM/DL 13.7-17.5 410) HEMATOCRIT (BEAKER) (test code = 43.0 % 40.1-51.0 411) MEAN CORPUSCULAR VOLUME (BEAKER) 94 fL 79-92 H (test code = 753) MEAN CORPUSCULAR HEMOGLOBIN 31.9 pg 25.7-32.2 (BEAKER) (test code = 751) MEAN CORPUSCULAR HEMOGLOBIN CONC 34.0 GM/DL 32.3-36.5 (BEAKER) (test code = 752) RED CELL DISTRIBUTION WIDTH 13.5 % 11.6-14.4 (BEAKER) (test code = 412) PLATELET COUNT (BEAKER) (test 226 K/CU MM 150-450 code = 756) MEAN PLATELET VOLUME (BEAKER) 9.6 fL 9.4-12.4 (test code = 754) NUCLEATED RED BLOOD CELLS 0 /100 WBC 0-0 (BEAKER) (test code = 413) NEUTROPHILS RELATIVE PERCENT 67 % (BEAKER) (test code = 429) LYMPHOCYTES RELATIVE PERCENT 19 % (BEAKER) (test code = 430) MONOCYTES RELATIVE PERCENT 13 % (BEAKER) (test code = 431) EOSINOPHILS RELATIVE PERCENT 0 % (BEAKER) (test code = 432) BASOPHILS RELATIVE PERCENT 1 % (BEAKER) (test code = 437) NEUTROPHILS ABSOLUTE COUNT 4.48 K/ L 1.78-5.38 (BEAKER) (test code = 670) LYMPHOCYTES ABSOLUTE COUNT 1.25 K/ L 1.32-3.57 L (BEAKER) (test code = 414) MONOCYTES ABSOLUTE COUNT (BEAKER) 0.85 K/ L 0.30-0.82 H (test code = 415) EOSINOPHILS ABSOLUTE COUNT 0.03 K/ L 0.04-0.54 L (BEAKER) (test code = 416) BASOPHILS ABSOLUTE COUNT (BEAKER) 0.06 K/ L 0.01-0.08 (test code = 417) IMMATURE GRANULOCYTES-RELATIVE 0.30 % 0.00-1.00 PERCENT (BEAKER) (test code = 2801) SARS-CoV2/RT-PCR (Asymptomatic ONLY)2022-11-16 14:36:16 Test Item Value Reference Interpretation Comments Range SARS-COV2/RT-PCR Negative Negative The SARS-Co V-2 (test code = target nucleic 31003-9) acids are not detected in thi s specimen. Negat ludwig results do not preclude SARS-C oV-2 infection and should not be u sed as the sole bas is for patient management decisions. Nega tive results must be combined with clinical observations, patient history , and epidemiolog ical information. A false negative result may occu r if a specimen is improperly collected, transported or handled. This S ARS CoV-2 test is a rapid, real-evin e RT-PCR test intended for th e qualitative detection of nucleic acid fr om SARS-CoV-2 in a nasopharyngeal swab specimen collec maggie from individual s suspected of COVID-19 by the ir healthcare provider. AURELIA (test code = This test has been AURELIA) authorized by FDA under an EUA for use by authorized laboratories. This test is only authorized for the duration of the declaration that circumstances exist justifying the authorization of emergency use of in vitro diagnostic tests for detection and/or diagnosis of COVID-19 under Section 564(b)(1) of the Federal Food, Drug and Cosmetic Act, 21 U.S.C. 360bbb-3(b)(1), unless the authorization is terminated or revoked sooner. Fact Sheet for Healthcare Providers: https://www.[employer]/Documents/Xp ert%20Xpress%20SAR S%20CoV-2/Fact%20S heets/302-3802%20S ARS-COV-2%20HEALTH CARE%20PROVIDERS%2 0FACT%20SHEET.pdf Fact Sheet for Healthcare Patients: https://www.[employer]/Documents/Xp ert%20Xpress%20SAR S%20CoV-2/Fact%20S heets/302-3801%20S ARS-COV-2%20PATIEN T%20FACT%20SHEET.p df Lab Interpretation Normal (test code = 70106-7) [facility]2022-11-16 14:36:16 Test Item Value Reference Range Interpretation Comments SARS-COV2/RT-PCR Negative Negative The SARS-Co V-2 target (test code = nucleic acids a re not 7066818) detected in thi s specimen. Negative result s do not preclude SARS-C oV-2 infection and s hould not be used as the gibran e basis for patient managem ent decisions. Nega tive results must be combine d with clinical observ ations, patient history , and epidemiological information. A false negativ e result may occur if a spec imen is improperly huey ected, transported or handled. This SARS CoV-2 test is a rapid, real-time RT-PC R test intended for th e qualitative detection of nu cleic acid from SARS-CoV-2 in a nasopharyngeal swab specimen collected from individuals suspected of CO VID-19 by their healthcar e provider. This test has been authorized by FDA under an EUA for use by authorized laboratories. This test is only authorized for the duration of the declaration that circumstances exist justifying the authorization of emergency use of in vitro diagnostic tests for detection and/or diagnosis of COVID-19 under Section 564(b)(1) of the Federal Food, Drug and Cosmetic Act, 21 U.S.C. 360bbb-3(b)(1), unless the authorization is terminated or revoked sooner. Fact Sheet for Healthcare Providers: https://www.[employer] m/Documents/Xpert%20Xpress%20SARS%20CoV-2/Fact%20Sheets/302-8462%64HJAT-BDZ-0%20 HEALTHCARE%20PROVIDERS%20FACT%20SHEET.pdf Fact Sheet for Healthcare Patients: https://www.[employer]/Documents/Xpert%20Xp ress%20SARS%20CoV-2/Fact%20Sheets/613-8881%76KPPB-RJT-0%20PATIENT%20FACT%20SHEET .pdf
--- NOTE | 2023-04-25 18:11 | RAD REPORT ---
EXAM DESCRIPTION: CT - Knee Left Wo Con - 04/25/2023 5:59 pm CLINICAL HISTORY: effusion, pain Left knee pain and swelling COMPARISON: No comparisons FINDINGS: Moderate diffuse osteopenia. Moderate tricompartmental osteoarthritis. Heavy atheroscleros is is seen. Moderate to large joint effusion. No soft tissue mass or hematoma. Although CT is not ideal for assessment of internal derangement, ACL deficiency is likely present. IMPRESSION: No acute fracture seen. The high degree of osteopenia could reduce sensitivity of subtle fractures. If pain persists or progresses, MRI would be recommended. Moderate tricompartmental osteoarthritis. Moderate to large joint effusion. All CT scans are performed using dose optimization technique as appropriate and may include automated exposure control or mA/KV adjustment according to patient size.
--- NOTE | 2023-04-25 18:21 | ER ---
Nurse's Notes [facility] Name: Ralph Mckeon Age: 87 yrs Sex: Male : 1935 Arrival Date: 04/25/2023 Time: 17:01 Bed 18 Private MD: Diagnosis: Effusion, left knee Presentation: 04/25 17:35 Chief complaint: Left knee pain and swelling x 2 days. Denies injury. Coronavirus hb screen: At this time, the client does not indicate any symptoms associated with coronavirus-19. Ebola Screen: No symptoms or risks identified at this time. Initial Sepsis Screen: Does the patient meet any 2 criteria? No. Patient's initial sepsis screen is negative. Does the patient have a suspected source of infection? No. Patient's initial sepsis screen is negative. Risk Assessment: Do you want to hurt yourself or someone else? Patient reports no desire to harm self or others. Onset of symptoms was April 23, 2023. 17:35 Method Of Arrival: Wheelchair hb 17:35 Acuity: PEYTON 4 hb Historical: - Allergies: 17:37 No Known Allergies; hb - Home Meds: 17:37 aspirin 81 mg Oral tab daily [Active]; finasteride 5 mg Oral tab once daily [Active]; hb hydrochlorothiazide 25 mg Oral tab 1 tab once daily [Active]; lovastatin 10 mg Oral tab 1 tab once daily [Active]; valsartan 320 mg Oral tab once daily [Active]; tamsulosin 0.4 mg Oral cap 1 cap once daily [Active]; Metoprolol Tartrate Oral [Active]; clopidogrel oral [Active]; - PMHx: 17:37 High Cholesterol; Hypertension; hb - PSHx: 17:37 cataracts; Prostate surgery; Right knee replacement; hb - Immunization history:: Adult Immunizations up to date. - Social history:: Smoking status: Patient/guardian denies using tobacco, the patient reports quitting approximately 30 years ago. Screenin:45 Abuse screen: Denies threats or abuse. Nutritional screening: No deficits noted. ap3 Tuberculosis screening: No symptoms or risk factors identified. 17:45 [facility] ED Fall Risk Assessment (Adult) History of falling in the last 3 months, ap3 including since admission No falls in past 3 months (0 pts). Assessment: 17:44 General: Appears in no apparent distress. Behavior is calm, cooperative. Pain: ap3 Complains of pain in left knee and right knee. Neuro: Level of Consciousness is awake, alert, obeys commands, Oriented to person, place, time, situation. Cardiovascular: Patient's skin is warm and dry. Respiratory: Airway is patent Respiratory effort is even, unlabored, Respiratory pattern is regular, symmetrical. Musculoskeletal: Swelling present in left knee and right knee Reports pain in left knee and right knee. Vital Signs: 17:35 BP 121 / 99; Pulse 69; Resp 16; Temp 98(O); Pulse Ox 96% on R/A; Weight 68.49 kg; hb Height 5 ft. 8 in. ; Pain 4/10; 17:35 Body Mass Index 22.96 (68.49 kg, 172.72 cm) hb 17:35 Pain Scale: Adult hb ED Course: 17:02 Patient arrived in ED. ts1 17:02 Love De La Cruz PA-C is PHCP. sb4 17:02 Ziyad Bryan MD is Attending Physician. sb4 17:37 Triage completed. hb 17:39 Arm band placed on. hb 17:44 Marylin Hazel, RN is Primary Nurse. ap3 17:45 Patient has correct armband on for positive identification. Bed in low position. Call ap3 light in reach. Adult w/ patient. Pulse ox on. NIBP on. 18:01 Knee Left Wo Con In Process Unspecified. EDMS 18:20 Nick Holder MD is Referral Physician. sb4 18:50 Provided Education on: discharge education. ap3 18:50 No provider procedures requiring assistance completed. Patient did not have IV access ap3 during this emergency room visit. Administered Medications: No medications were administered Medication: 17:45 VIS not applicable for this client. ap3 Outcome: 18:20 Discharge ordered by MD. sb4 18:50 Discharged to home ambulatory, with family. ap3 18:50 Condition: good 18:50 Discharge instructions given to patient, family, Instructed on discharge instructions, follow up and referral plans. medication usage, Demonstrated understanding of instructions, follow-up care, medications, Prescriptions given X 1. 18:50 Patient left the ED. ap3 Signatures: Dispatcher [employer] EDKY Fadia Wadsworth RN RN Marylin Hazel RN RN ap3 Love De La Cruz, PA-C PA-C sb4 Brunilda Levi, [facility] ts1
--- NOTE | 2023-04-25 18:21 | EDPHYS ---
Physician Documentation [facility] Name: Ralph Mckeon Age: 87 yrs Sex: Male : 1935 Arrival Date: 04/25/2023 Time: 17:01 Bed 18 Private MD: ELEONORA Physician Ziyad Bryan HPI: 04/25 17:42 This 87 yrs old Male presents to ER via Wheelchair with complaints of Knee Pain. sb4 17:42 87 year old male with history of CAD on plavix, hypertension, hyperlipidemia, and polio sb4 with left foot deformity presents with complaints of swelling and pain in his left knee. States he noticed the swelling yesterday, denies any injury. Reports pain on the lateral side of his left knee. Denies fever. Historical: - Allergies: 17:37 No Known Allergies; hb - Home Meds: 17:37 aspirin 81 mg Oral tab daily [Active]; finasteride 5 mg Oral tab once daily [Active]; hb hydrochlorothiazide 25 mg Oral tab 1 tab once daily [Active]; lovastatin 10 mg Oral tab 1 tab once daily [Active]; valsartan 320 mg Oral tab once daily [Active]; tamsulosin 0.4 mg Oral cap 1 cap once daily [Active]; Metoprolol Tartrate Oral [Active]; clopidogrel oral [Active]; - PMHx: 17:37 High Cholesterol; Hypertension; hb - PSHx: 17:37 cataracts; Prostate surgery; Right knee replacement; hb - Immunization history:: Adult Immunizations up to date. - Social history:: Smoking status: Patient/guardian denies using tobacco, the patient reports quitting approximately 30 years ago. ROS: 17:42 Constitutional: Negative for fever, chills, and weight loss. sb4 17:42 All other systems are negative. 17:44 MS/extremity: Positive for pain, swelling, of the left knee. sb4 Exam: 17:42 Constitutional: This is a well developed, well nourished patient who is awake, alert, sb4 and in no acute distress. Head/Face: Normocephalic, atraumatic. Cardiovascular: Regular rate and rhythm with a normal S1 and S2. Respiratory: Lungs have equal breath sounds bilaterally, clear to auscultation and percussion. No rales, rhonchi or wheezes noted. No increased work of breathing, no retractions or nasal flaring. Skin: Warm, dry with normal turgor. Normal color with no rashes, no lesions, and no evidence of cellulitis. 17:42 Musculoskeletal/extremity: ROM: intact in all extremities, Circulation is intact in all extremities. Sensation intact. Joints: the left knee displays effusion, swelling. Vital Signs: 17:35 BP 121 / 99; Pulse 69; Resp 16; Temp 98(O); Pulse Ox 96% on R/A; Weight 68.49 kg; hb Height 5 ft. 8 in. ; Pain 4/10; 17:35 Body Mass Index 22.96 (68.49 kg, 172.72 cm) hb 17:35 Pain Scale: Adult hb MDM: 17:02 Patient medically screened. sb4 17:45 Differential Diagnosis septic joint, LCL tear, prepatellar effusion, osteoarthritis. sb4 18:19 Data reviewed: vital signs, nurses notes, radiologic studies, CT scan, I have discussed sb4 the patient's presentation/case with the attending Emergency Department Physician; and as a result, I will discharge patient. Care significantly affected by the following chronic conditions: Hypertension, CAD, polio. Counseling: I had a detailed discussion with the patient and/or guardian regarding: the historical points, exam findings, and any diagnostic results supporting the discharge/admit diagnosis, radiology results, the need for outpatient follow up, a orthopedic surgeon, to return to the emergency department if symptoms worsen or persist or if there are any questions or concerns that arise at home. 04/25 17:43 Order name: Knee Left Wo Con; Complete Time: 18:13 EDMS Administered Medications: No medications were administered Disposition Summary: 04/25/23 18:20 Discharge Ordered Location: Home sb4 Problem: new sb4 Symptoms: are unchanged sb4 Condition: Stable sb4 Diagnosis - Effusion, left knee sb4 Followup: sb4 - With: Nick Holder MD - When: 2 - 3 days - Reason: Recheck today's complaints, Re-evaluation by your physician Discharge Instructions: - Discharge Summary Sheet sb4 - Knee Effusion, Lxaf-[id number]-Gbbw sb4 Forms: - Medication Reconciliation Form sb4 - Thank You Letter sb4 - Antibiotic Education sb4 - Prescription Opioid Use sb4 - Patient Portal Instructions sb4 Prescriptions: - Medrol (Leno) 4 mg Oral Tablets, Dose Pack - take 1 tablet by ORAL route as directed - follow package instructions; 1 sb4 packet; Refills: 0, Product Selection Permitted Signatures: Dispatcher Fadia Tidwell RN RN Love [place], OPAL PAOsman sb4 Corrections: (The following items were deleted from the chart) 17:45 17:42 MS/extremity: Positive for pain, swelling, of the right knee, Negative for sb4 erythema, rash, sb4
[2023-04-25 18:57] VITALS: BP 121/99; TEMP 98; O2SAT 96
== END 2023-04-25 18:50 | disposition home or self-care (01) ==
LOC: ER 17:01
DX: M25.462 Effusion, left knee (principal)
CPT/HCPCS: 73700; 99283

== ENCOUNTER 2024-10-01 09:06 | Emergency (ER) | payer OTHER ==
[2024-10-01 09:42] LABS: Absolute Basophils 0.1 K/uL (0-0.5); Absolute Eosinophils 0.1 K/uL (0-0.5); Absolute Lymphocytes (CBC) 0.9 K/uL (0.7-4.9); Absolute Monocytes 0.6 K/uL (0.1-1.3); Absolute Neutrophil 3.4 K/uL (1.8-8.0); Basophils % 1.1 % (0-1.3); Eosinophils % 1.7 % (0-4.4); Hematocrit 46.8 % (39.6-49.0); Hemoglobin 15.6 g/dL (13.6-17.9); Lymphocytes % 17.8 % (15.3-44.8); MCH 31.8 pg (27.0-35.0); MCHC 33.3 g/dL (32.0-36.0); MCV 95.5 fL (80-100); MPV 8.1 fL (7.6-11.3); Monocytes % 12.6 % (3.3-12.3); Neutrophils % 66.8 % (41.7-73.7); Platelets 210 thou/uL (152-406); Red Cell Distribution Width 14.2 % (12.1-15.2)
[2024-10-01 09:44] LABS: Sqamous Epithelial None Seen /HPF (None Seen); Urine Bacteria None Seen /HPF (<20); Urine Culture Reflex Order NOT NEEDED; Urine Micro Reflex YN NO BILL MICROSCOPIC; Urine RBC >50 /HPF (None Seen); Urine WBC None Seen /HPF (<5)
[2024-10-01 10:03] LABS: Albumin 3.7 g/dL (3.4-5.0); Albumin/Globulin Ratio 1.1 (1.1-1.8); Anion Gap 8.7 mEq/L (5.0-15.0); Globulin 3.3 g/dL (2.3-3.5); Potassium 3.7 mEq/L (3.5-5.1)
[2024-10-01 10:18] LABS: PT Prothrombin Time 12.1 SECONDS (9.4-12.5); PTT, Activated Partial Thromb 31.9 SECONDS (24.3-36.9); Protime INR 1.08
--- NOTE | 2024-10-01 10:46 | RAD REPORT ---
EXAMINATION: CT ABDOMEN AND PELVIS WITH CONTRAST CLINICAL INDICATION: Male, 89 years old.HEMATURIA TECHNIQUE: CT abdomen and pelvis was performed, after the administration of IV contrast, as per [facility] protocol. Axial, sagittal and coronal reconstructions were obtained. One or more of the following dose reduction techniques were used: Automated exposure control, adjustment of the mA and/o r kV according to patient size, and/or iterative reconstruction. Unless otherwise specified, incidental findings do not require dedicated imaging follow-up. [id number]. COMPARISON: 09/18/2016 FINDINGS: LOWER CHEST: Coronary stent in the right main coronary artery. Mild cardiomegaly. LIVER: Hepatic steatosis. No suspicious masses. GALLBLADDER/BILE DUCT: No biliary ductal dilatation.? PANCREAS: Cystic lesion at the uncinate measuring 2.8 x 2.1 cm has increased in size, previously 2 x 2 CM on 09/18/2016. SPLEEN: Normal size. No focal lesion. ADRENALS: Normal; no mass. KIDNEYS AND URETERS: Bilateral renal lesions which are either benign in appearance or too small to ac curately characterize but statistically benign. GASTROINTESTINAL TRACT: Stomach is non-dilated. Small bowel has normal course and caliber. No colonic wall thickening or pericolonic inflammatory changes. Normal appendix. PERITONEUM: A portion of the bladder is retracted into the left neural canal. LYMPH NODES: No lymphadenopathy. ABDOMINAL AORTA AND OTHER VESSELS: Normal caliber aorta and IVC. URINARY BLADDER: A portion of the bladder is retracted and the left inguinal canal. Dense contents pr esent within the bladder lumen. REPRODUCTIVE ORGANS: Prostatomegaly. MUSCULOSKELETAL: No acute or suspicious osseous abnormality. Multilevel degenerative changes are pres ent in the spine. ADDITIONAL FINDINGS: None. IMPRESSION: Dense contents present within the bladder lumen could represent either acute hemorrhage and/or mass. Consider cystoscopy which need not be emergent. Also note that the left anterolateral aspect of the bladder is retracted into the left inguinal canal. Typically, this is of little significance but sugg est clinical correlation. Enlarging cystic lesion at the uncinate of the pancreas. 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 Could consider 12-24 month follow-up MRCP to assess for stability. Considering the patient's age and extremely slow growth, it is unlikely to be clinically significant.
[2024-10-01] MEDS ORDERED: NA CHLORIDE 0.9% 1,000 ML ONE (12:27)
--- NOTE | 2024-10-01 15:19 | EDPHYS ---
Physician Documentation [facility] Name: Ralph Mckeon Age: 89 yrs Sex: Male : 1935 Arrival Date: 10/01/2024 Time: 09:06 Bed 29 Private MD: ELEONORA Physician Ziyad Bryan HPI: 10/01 09:21 This 89 yrs old Male presents to ER via Ambulatory with complaints of Blood in urine. sb4 09:21 The patient presents with urinary symptoms, hematuria. Onset: The symptoms/episode sb4 began/occurred this morning. Modifying factors: The symptoms are alleviated by nothing, the symptoms are aggravated by nothing. Associated signs and symptoms: The patient has no apparent associated signs or symptoms, Pertinent negatives: abdominal pain, dysuria, fever, nausea, vomiting. The patient has experienced a previous episode, many years ago. The patient has not recently seen a physician. hematuria that began this morning. no pain, dysuria, fever, flank pain, n/v. on plavix. Historical: - Allergies: 09:13 No Known Allergies; iw - Home Meds: 09:15 aspirin 81 mg Oral tab daily [Active]; clopidogrel 75 mg oral tablet daily [Active]; iw finasteride 5 mg Oral tab once daily [Active]; hydrochlorothiazide 25 mg Oral tab 1 tab once daily [Active]; lovastatin 10 mg Oral tab 1 tab once daily [Active]; Metoprolol Tartrate Oral [Active]; tamsulosin 0.4 mg Oral cap 1 cap once daily [Active]; valsartan 320 mg Oral tab once daily [Active]; - PMHx: 09:13 Hypertension; High Cholesterol; iw - PSHx: 09:13 cataracts; Prostate surgery; Right knee replacement; iw - Immunization history:: Adult Immunizations up to date. - Infectious Disease History:: Denies. - Social history:: Smoking status: Patient denies any tobacco usage or history of. ROS: 09:21 Constitutional: Negative for fever, chills, and weight loss, sb4 09:21 : Positive for hematuria, 09:21 All other systems are negative, Exam: 09:21 Constitutional: This is a well developed, well nourished patient who is awake, alert, sb4 and in no acute distress. Head/Face: Normocephalic, atraumatic. Eyes: Extra-ocular motions intact. Periorbital areas with no swelling, redness, or edema. ENT: Mucous membranes moist. Cardiovascular: Regular rate and rhythm with a normal S1 and S2. Respiratory: No increased work of breathing, no retractions or nasal flaring. Abdomen/GI: Soft, non-tender, no distension. Skin: Warm, dry with normal turgor. Normal color with no rashes, no lesions, and no evidence of cellulitis. Vital Signs: 09:34 BP 154 / 81; Pulse 74; Resp 17; Temp 98; Pulse Ox 99% on R/A; rs5 MDM: 09:13 Medical Screening Exam initiated sb4 15:19 Data reviewed: vital signs, nurses notes, lab test result(s), radiologic studies, I sb4 have discussed the patient's presentation/case with the attending Emergency Department Physician;. Counseling: I had a detailed discussion with the patient and/or guardian regarding the historical points, exam findings, and any diagnostic results supporting the discharge/admit diagnosis, lab results, radiology results, the need to transfer to another facility, [facility] does not immediately have the required specialist. 15:20 ED course: several unsuccessful attempts were made to insert vera catheter. urine sb4 remains grossly bloody. no urology customer liaison. will transfer for urology services. 16:25 Management of patient was discussed with the following: Developer Architect: Dr. Reed, [address] [facility], recommends checking a post void residual, holding plavix for 3 days (if cleared by cardiology) and following up with urology outpatient. 17:23 ED course: patient is now having difficulty urinating. feels like a clot is lodged. PVR sb4 checked- 627 mL, MD will attempt vera catheter insertion and proceed with transfer. 17:36 Management of patient was discussed with the following: Developer Architect: Dr. Estrella, patient's 4 die stamping press operator, is okay with holding plavix for up to 7 days. 18:06 ED course: MD attempted insertion of several sizes of vera catheters, unsuccessfully. sb4 18:12 ED course: 670 cc urine in bladder, unable to place vera, have not heard back from [address], will attempt transfer to [facility]. 10/01 09:20 Order name: CBC with Diff; Complete Time: :46 sb4 10/01 09:20 Order name: CMP; Complete Time: 10:05 sb4 10/01 09:20 Order name: PT-INR; Complete Time: 10:19 sb4 10/01 09:20 Order name: Ptt, Activated; Complete Time: 10:19 sb4 10/01 09:40 Order name: Urine Microscopic Only; Complete Time: 09:44 EDMS 10/01 09:20 Order name: CT Abd/Pelvis - IV Contrast Only; Complete Time: 10:47 sb4 10/01 09:20 Order name: IV Saline Lock; Complete Time: 09:34 sb4 10/01 09:20 Order name: Labs collected and sent; Complete Time: 09:34 sb4 10/01 16:20 Order name: Misc. Order: post void residual; Complete Time: 17:43 sb4 10/01 18:24 Order name: NPO; Complete Time: 18:59 foreign Administered Medications: 12:36 Drug: NS 0.9% IV 1000 ml IV at 1000 ml once; to be given as a bolus over 60 minutes rs5 Route: IV; Rate: 1000 ml; Site: right forearm; 18:12 Drug: Ondansetron IVP 4 mg IVP once; over 2 minutes Route: IVP; Site: right forearm; rs5 18:40 Drug: morphine IVP or IV 4 mg IVP once over 4 mins Route: IVP; Infused Over: 4 mins; rs5 Site: right forearm; Disposition Summary: 10/01/24 15:19 Transfer Ordered Notes:

Transfer Location: [facility] sb4 Reason: Higher level of care sb4 Condition: Fair sb4 Problem: new sb4 Symptoms: are unchanged sb4 Accepting Physician: urology(10/01/24 20:18) vc1 Diagnosis - Gross hematuria sb4 - Retention of urine, unspecified sb4 - BPH sb4 Discharge Instructions: - Discharge Summary Sheet sb4 - Hematuria, Adult sb4 - Cystoscopy sb4 Forms: - Medication Reconciliation Form sb4 - SBAR form sb4 Addendum: 10/06/2024 12:45 Co-signature as Attending Physician, Ziyad Bryan MD I agree with the assessment and c keane plan of care. Signatures: Dispatcher [employer] EDZiyad Gutierrez MD MD foreign Jackson, Katerina, RN RN iw Rachna Del Castillo, RN RN vc1 Love De La Cruz PA-C PA-Liam sb4 Richard Shore, RN RN rs5 Corrections: (The following items were deleted from the chart) 10/01 09: 09:21 CBC+H.LAB.BRZ ordered. EDMS EDMS 09: 09:21 COMPREHENSIVE METABOLIC PANEL+C.LAB.BRZ ordered. EDMS EDMS : 09:21 PROTIME (+INR)+COAG.LAB.BRZ ordered. EDMS EDMS : 09:21 PTT, ACTIVATED+COAG.LAB.BRZ ordered. EDMS EDMS 09:21 09:21 Abdomen Pelvis W Con+CT.RAD.BRZ ordered. EDMS EDMS 09:40 09:21 Urinalysis+U.LAB.BRZ ordered. EDMS EDMS 12:50 11:27 Vera ordered. sb4 rs5 12:50 11:27 Bladder Irrigation ordered. sb4 rs5 17:10 15:19 urology sb4 sb4 20:18 17:10 urology sb4 vc1
--- NOTE | 2024-10-01 15:19 | ER ---
Nurse's Notes [facility] Name: Ralph Mckeon Age: 89 yrs Sex: Male : 1935 Arrival Date: 10/01/2024 Time: 09:06 Bed 29 Private MD: Diagnosis: Gross hematuria;Retention of urine, unspecified;BPH Presentation: 10/01 09:13 Chief complaint: Patient states: blood in urine since this morning. Coronavirus screen: iw At this time, the client does not indicate any symptoms associated with coronavirus-19. Ebola Screen: No symptoms or risks identified at this time. Initial Sepsis Screen: Does the patient meet any 2 criteria? No. Patient's initial sepsis screen is negative. Does the patient have a suspected source of infection? No. Patient's initial sepsis screen is negative. Risk Assessment: Do you want to hurt yourself or someone else? Patient reports no desire to harm self or others. Onset of symptoms was October 01, 2024. 09:13 Method Of Arrival: Ambulatory iw 09:13 Acuity: PEYTON 3 iw Historical: - Allergies: 09:13 No Known Allergies; iw - Home Meds: 09:15 aspirin 81 mg Oral tab daily [Active]; clopidogrel 75 mg oral tablet daily [Active]; iw finasteride 5 mg Oral tab once daily [Active]; hydrochlorothiazide 25 mg Oral tab 1 tab once daily [Active]; lovastatin 10 mg Oral tab 1 tab once daily [Active]; Metoprolol Tartrate Oral [Active]; tamsulosin 0.4 mg Oral cap 1 cap once daily [Active]; valsartan 320 mg Oral tab once daily [Active]; - PMHx: 09:13 Hypertension; High Cholesterol; iw - PSHx: 09:13 cataracts; Prostate surgery; Right knee replacement; iw - Immunization history:: Adult Immunizations up to date. - Infectious Disease History:: Denies. - Social history:: Smoking status: Patient denies any tobacco usage or history of. Screenin:15 [place] ED Fall Risk Assessment (Adult) History of falling in the last 3 months, rs5 including since admission No falls in past 3 months (0 pts) Confusion or Disorientation No (0 pts) Intoxicated or Sedated No (0 pts) Impaired Gait Yes (1 pt) Mobility Assist Device Used Yes (1 pt) Altered Elimination No (0 pt) Score/Fall Risk Level 0 - 2 = Low Risk Oriented to surroundings, Maintained a safe environment. Abuse screen: Denies threats or abuse. Nutritional screening: No deficits noted. Tuberculosis screening: No symptoms or risk factors identified. Assessment: 09:15 General: Appears in no apparent distress. comfortable, Behavior is calm, cooperative. rs5 09:15 Pain: Denies pain. Neuro: Level of Consciousness is awake, alert, obeys commands, rs5 Oriented to person, place, time, situation. Cardiovascular: Patient's skin is warm and dry. Respiratory: Airway is patent Respiratory effort is even, unlabored, Respiratory pattern is regular, symmetrical. GI: Abdomen is round non-distended. : Reports blood in urine. EENT: No signs and/or symptoms were reported regarding the EENT system. Derm: Skin is intact, Skin is pink, warm \T\ dry. Musculoskeletal: Range of motion: intact in all extremities. 10:25 Reassessment: Patient and/or family updated on plan of care and expected duration. Pain rs5 level reassessed. Patient is alert, oriented x 3, equal unlabored respirations, skin warm/dry/pink. 11:22 Reassessment: Patient and/or family updated on plan of care and expected duration. Pain rs5 level reassessed. Patient is alert, oriented x 3, equal unlabored respirations, skin warm/dry/pink. 11:45 Reassessment: to bedside for three way vera insertion with tech. Failed attempt with rs5 18g [address] vera[address] Unable to advance passed prostate, provider notified. 12:01 Reassessment: to bedside for 3 way vera insertion for irrigation, failed attempt with rs5 16 ff, unable to advance past prostate, provider notified. 12:37 Reassessment: Patient and/or family updated on plan of care and expected duration. Pain rs5 level reassessed. Patient is alert, oriented x 3, equal unlabored respirations, skin warm/dry/pink. Vital Signs: 09:34 BP 154 / 81; Pulse 74; Resp 17; Temp 98; Pulse Ox 99% on R/A; rs5 ED Course: 09:08 Patient arrived in ED. ra3 09:09 Love De La Cruz PA-C is [facility]. sb4 09:09 Ziyad Bryan MD is Attending Physician. sb4 09:13 Triage completed. iw 09:14 Arm band placed on. iw 09:15 Richard Shore, RN is Primary Nurse. rs5 09:15 Patient has correct armband on for positive identification. Placed in gown. Bed in low rs5 position. Call light in reach. Side rails up X2. 09:15 No provider procedures requiring assistance completed. rs5 09:22 Inserted saline lock: 20 gauge in right forearm, using aseptic technique. Blood rs5 collected. Flushed with 10 mL NS. 10:38 CT Abd/Pelvis - IV Contrast Only In Process Unspecified. EDMS 15:22 initiated a transfer with Renetta from the [facility]. eb 16:10 connected the urologist shoe reconditioner for [facility] with [facility] for pt transfer eb consultation. 17:34 per Tracy she is waiting for the urologist to call her back. eb 18:11 \[id number] Bryan with Delores from the [facility] /\T\181 eb administrative approval given by Cori Barboza, Dr. Jose Angel Guidry has accepted the patient in transfer, patient going to [facility] ER/ report to be called to [phone]. Administered Medications: 12:36 Drug: NS 0.9% IV 1000 ml IV at 1000 ml once; to be given as a bolus over 60 minutes rs5 Route: IV; Rate: 1000 ml; Site: right forearm; 18:12 Drug: Ondansetron IVP 4 mg IVP once; over 2 minutes Route: IVP; Site: right forearm; rs5 18:40 Drug: morphine IVP or IV 4 mg IVP once over 4 mins Route: IVP; Infused Over: 4 mins; rs5 Site: right forearm; Medication: 11:23 VIS not applicable for this client. rs5 Outcome: 15:19 ER care complete, transfer ordered by . sb4 20:18 Patient left the ED. vc1 Signatures: Dispatcher [employer] EDMS Katerina Paz RN RN iw Bessie Jones eb Rachna Del Castillo RN RN vc1 Love De La Cruz PA-C PAOsman sb4 Shore, Richard, RN RN rs5 Jarrett, Misti ra3
[2024-10-01] MEDS ORDERED: LIDOCAINE VISCOUS 2% 10ML ORAL SOLN ONE (17:47)
[2024-10-01] MEDS ORDERED: MORPHINE 2 MG/ML SYR ONE (18:21)
[2024-10-01] MEDS ORDERED: ONDANSETRON 4 MG/2 ML VIAL ONE (18:21)
[2024-10-01] MEDS ORDERED: CEFTRIAXONE 1000 MG/VIAL ONE (19:01)
[2024-10-01 20:35] VITALS: BP 154/81; TEMP 98; O2SAT 99
== END 2024-10-01 20:18 | disposition short-term general hospital (02) ==
LOC: ER 09:06
PROC: 0T9B70Z Drainage of Bladder with Drainage Device, Via Natural or Artificial Opening (ICD-10-PCS; principal; 2024-10-01)
DX: R31.9 Hematuria, unspecified (principal); N40.1 Benign prostatic hyperplasia with lower urinary tract symptoms; R33.8 Other retention of urine; I10 Essential (primary) hypertension; E78.00 Pure hypercholesterolemia, unspecified
CPT/HCPCS: 85025; 36415; 85610; 85730; 81015; 80053; 74177; 96375; 96374; 99284; 51702; Q9967; J2270; J2405; J7030; J0696

== ENCOUNTER 2024-10-03 18:35 | Emergency (ER) | payer OTHER ==
[2024-10-03 19:51] LABS: Absolute Basophils 0.1 K/uL (0-0.5); Absolute Eosinophils 0.2 K/uL (0-0.5); Absolute Monocytes 1.1 K/uL (0.1-1.3); Absolute Neutrophil 4.6 K/uL (1.8-8.0); Basophils % 1.3 % (0-1.3); Eosinophils % 3.1 % (0-4.4); Hematocrit 38.2 % (39.6-49.0); Lymphocytes % 14.4 % (15.3-44.8); MCH 32.4 pg (27.0-35.0); MCHC 33.9 g/dL (32.0-36.0); MCV 95.5 fL (80-100); MPV 8.5 fL (7.6-11.3); Monocytes % 15.5 % (3.3-12.3); Neutrophils % 65.7 % (41.7-73.7); Nucleated Red Blood Cells % 0.1 % (0-0); Platelets 176 thou/uL (152-406); Red Cell Distribution Width 14.3 % (12.1-15.2)
[2024-10-03 19:53] LABS: Protime INR 1.17
--- NOTE | 2024-10-03 19:56 | EDPHYS ---
Physician Documentation [facility] Name: Ralph Mckeon Age: 89 yrs Sex: Male : 1935 Arrival Date: 10/03/2024 Time: 18:35 Bed 13 Private MD: ED Physician Ziyad Bryan HPI: 10/03 19:48 This 89 yrs old Male presents to ER via Ambulatory with complaints of Urinary foreign Problem, Problem With Urinary Catheter. 19:48 The patient presents with urinary symptoms, retention. Modifying factors: The symptoms foreign are alleviated by nothing, the symptoms are aggravated by nothing. Associated signs and symptoms: The patient has no apparent associated signs or symptoms. Severity of symptoms: At their worst the symptoms were mild, in the emergency department the symptoms are unchanged. The patient has not experienced similar symptoms in the past. Historical: - Allergies: 18:51 No Known Allergies; hb - PMHx: 18:51 High Cholesterol; Hypertension; hb - PSHx: 18:51 cataracts; Prostate surgery; Right knee replacement; hb - Immunization history:: Adult Immunizations up to date. - Infectious Disease History:: Denies. - Social history:: Smoking status: Patient denies any tobacco usage or history of. ROS: 19:49 Constitutional: Negative for fever, chills, and weight loss, Eyes: Negative for injury, foreign pain, redness, and discharge, ENT: Negative for injury, pain, and discharge, Neck: Negative for injury, pain, and swelling, Cardiovascular: Negative for chest pain, palpitations, and edema, Respiratory: Negative for shortness of breath, cough, wheezing, and pleuritic chest pain, Abdomen/GI: Negative for abdominal pain, nausea, vomiting, diarrhea, and constipation, Back: Negative for injury and pain, MS/Extremity: Negative for injury and deformity, Skin: Negative for injury, rash, and discoloration, Neuro: Negative for headache, weakness, numbness, tingling, and seizure, Psych: Negative for depression, anxiety, suicide ideation, homicidal ideation, and hallucinations, Allergy/Immunology: Negative for hives, rash, and allergies, Endocrine: Negative for neck swelling, polydipsia, polyuria, polyphagia, and marked weight changes, Hematologic/Lymphatic: Negative for swollen nodes, abnormal bleeding, and unusual bruising, 19:49 : Positive for MANN BLOCKED, Exam: 19:49 Constitutional: This is a well developed, well nourished patient who is awake, alert, foreign and in no acute distress. Head/Face: Normocephalic, atraumatic. Eyes: Pupils equal round and reactive to light, extra-ocular motions intact. Lids and lashes normal. Conjunctiva and sclera are non-icteric and not injected. Cornea within normal limits. Periorbital areas with no swelling, redness, or edema. ENT: Nares patent. No nasal discharge, no septal abnormalities noted. Tympanic membranes are normal and external auditory canals are clear. Oropharynx with no redness, swelling, or masses, exudates, or evidence of obstruction, uvula midline. Mucous membranes moist. Neck: Trachea midline, no thyromegaly or masses palpated, and no cervical lymphadenopathy. Supple, full range of motion without nuchal rigidity, or vertebral point tenderness. No Meningismus. Chest/axilla: Normal chest wall appearance and motion. Nontender with no deformity. No lesions are appreciated. Cardiovascular: Regular rate and rhythm with a normal S1 and S2. No gallops, murmurs, or rubs. Normal PMI, no JVD. No pulse deficits. Respiratory: Lungs have equal breath sounds bilaterally, clear to auscultation and percussion. No rales, rhonchi or wheezes noted. No increased work of breathing, no retractions or nasal flaring. Back: No spinal tenderness. No costovertebral tenderness. Full range of motion. Skin: Warm, dry with normal turgor. Normal color with no rashes, no lesions, and no evidence of cellulitis. MS/ Extremity: Pulses equal, no cyanosis. Neurovascular intact. Full, normal range of motion., bilateral aka Neuro: Awake and alert, GCS 15, oriented to person, place, time, and situation. Cranial nerves II-XII grossly intact. Motor strength 5/5 in all extremities. Sensory grossly intact. Cerebellar exam normal. Normal gait. Psych: Awake, alert, with orientation to person, place and time. Behavior, mood, and affect are within normal limits. 19:49 Abdomen/GI: Inspection: distension, in the suprapubic area, Bowel sounds: normal, Palpation: abdomen is soft and non-tender, Liver: no appreciated palpable abnormalities, Hernia: not appreciated, Vital Signs: 18:49 Pulse 73; Resp 16; Temp 99.2(O); Pulse Ox 100% on R/A; Weight 68.95 kg; Height 5 ft. 8 hb in. ; Pain 8/10; 20:14 BP 144 / 65; Pulse 62; Resp 18; Pulse Ox 94% ; br2 18:49 Body Mass Index 23.11 (68.95 kg, 172.72 cm) hb 18:49 Pain Scale: Adult hb MDM: 18:54 Medical Screening Exam initiated foreign 19:51 Differential diagnosis: nonspecific abdominal pain, UTI, urinary retention, Mann foreign catheter problem, prostatitis, urethritis. Data reviewed: vital signs, nurses notes, lab test result(s), EKG. Consideration of Admission/Observation Escalation of care including admission/observation considered. I considered the following discharge prescriptions or medication management in the emergency department Medications were administered in the Emergency Department. See MAR. Test considered but Not performed: CT: NO CT DONE. Historians other than the Patient: Spouse/Significant Other: WELL INFORMED. Care significantly affected by the following chronic conditions: Hypertension, HIGH CHOLESTEROL. Counseling: I had a detailed discussion with the patient and/or guardian regarding the historical points, exam findings, and any diagnostic results supporting the discharge/admit diagnosis, lab results, the need for outpatient follow up, for definitive care, a family practitioner, a urologist. 10/03 18:55 Order name: CBC with Diff; Complete Time: 20:08 [facility] 10/03 18:55 Order name: Comprehensive Metabolic Panel; Complete Time: 20:08 [facility] 10/03 18:55 Order name: PT-INR; Complete Time: 20:08 [facility] Administered Medications: 20:03 Not Given (Physician Discretion): ns 0.9% 500 ml 500 ml IV at 125 ml/hr once br2 20:09 Drug: Rocephin IV 1 grams IV at per protocol once; Given slow IV push per pharmacy br2 instructions Route: IV; Rate: per protocol; Site: right forearm; 10/04 02:32 Follow up: Response: No adverse reaction; Medication administered at discharge.; IV br2 Status: Completed infusion; IV Intake: 100ml Disposition Summary: 10/03/24 19:55 Discharge Ordered Notes: Location: Home foreign Problem: new foreign Symptoms: have improved foreign Condition: Stable foreign Diagnosis - Other mechanical complication of urinary (indwelling) catheter foreign - Mechanical complication of urinary (indwelling) catheter foreign - Retention of urine, unspecified foreign Followup: foreign - With: Private Physician - When: 2 - 3 days - Reason: Recheck today's complaints, Continuance of care, Re-evaluation by your physician Followup: foreign - With: Daren Deleon MD - When: 2 - 3 days - Reason: Recheck today's complaints, Continuance of care, Re-evaluation by your physician Discharge Instructions: - Discharge Summary Sheet foreign - Indwelling Urinary Catheter Care, Adult foreign - Acute Urinary Retention, Male foreign - Acute Urinary Retention, Male, [id number] foreign Forms: - Medication Reconciliation Form foreign - Antibiotic Education foreign - Prescription Opioid Use foreign - Patient Portal Instructions foreign - Leadership Thank You Letter [facility] Prescriptions: - Flomax 0.4 mg Oral capsule - take 1 capsule ORAL route once; 30 capsule; Refills: 0, Product Selection foreign Permitted Signatures: Dispatcher [employer] Ziyad Evans MD MD cha Baxter, Heather, RN RN Love [place] PAOsman PAOsman sb4 Lisa Rivera rv1 Johnna Romo, RN RN br2 Corrections: (The following items were deleted from the chart) 10/03 18:56 18:56 CBC+H.LAB.BRZ ordered. EDMS EDMS 18:56 18:56 COMPREHENSIVE METABOLIC PANEL+C.LAB.BRZ ordered. EDMS EDMS 18:56 18:56 PROTIME (+INR)+COAG.LAB.BRZ ordered. EDMS EDMS 18:56 18:56 TYPE AND SCREEN+BB.LAB.BRZ ordered. EDMS EDMS 18:56 18:56 Stone Protocol+CT.RAD.BRZ ordered. EDMS EDMS 20:10 18:53 Bladder Scanner ordered. sb4 br2 20:10 19:47 Misc. Order ordered. rv1 br2
--- NOTE | 2024-10-03 19:56 | ER ---
Nurse's Notes [facility] Name: Ralph Mckeon Age: 89 yrs Sex: Male : 1935 Arrival Date: 10/03/2024 Time: 18:35 Bed 13 Private MD: Diagnosis: Other mechanical complication of urinary (indwelling) catheter;Mechanical complication of urinary (indwelling) catheter;Retention of urine, unspecified Presentation: 10/03 18:49 Chief complaint: Decreased urine in catheter collection bag this afternoon, c/o hb suprapubic pressure and urge to urinate. Coronavirus screen: At this time, the client does not indicate any symptoms associated with coronavirus-19. Ebola Screen: No symptoms or risks identified at this time. Initial Sepsis Screen: Does the patient meet any 2 criteria? No. Patient's initial sepsis screen is negative. Does the patient have a suspected source of infection? No. Patient's initial sepsis screen is negative. Risk Assessment: Do you want to hurt yourself or someone else? Patient reports no desire to harm self or others. Onset of symptoms was October 03, 2024. 18:49 Method Of Arrival: Ambulatory hb 18:49 Acuity: PEYTON 4 hb Historical: - Allergies: 18:51 No Known Allergies; hb - PMHx: 18:51 High Cholesterol; Hypertension; hb - PSHx: 18:51 cataracts; Prostate surgery; Right knee replacement; hb - Immunization history:: Adult Immunizations up to date. - Infectious Disease History:: Denies. - Social history:: Smoking status: Patient denies any tobacco usage or history of. Screenin:15 [facility] ED Fall Risk Assessment (Adult) History of falling in the last 3 months, br2 including since admission No falls in past 3 months (0 pts) Confusion or Disorientation No (0 pts) Intoxicated or Sedated No (0 pts) Impaired Gait No (0 pts) Mobility Assist Device Used Yes (1 pt) Altered Elimination Yes (1 pt) Score/Fall Risk Level 3 or more points = High Risk Oriented to surroundings, Maintained a safe environment. Abuse screen: Denies threats or abuse. Denies injuries from another. Nutritional screening: No deficits noted. Tuberculosis screening: No symptoms or risk factors identified. Assessment: 19:15 Reassessment: Patient and/or family updated on plan of care and expected duration. Pain br2 level reassessed. Patient is alert, oriented x 3, equal unlabored respirations, skin warm/dry/pink. General: Appears uncomfortable, Behavior is calm, cooperative, Smells of. Pain: Complains of pain in pelvis Pain does not radiate. Pain currently is 6 out of 10 on a pain scale. Quality of pain is described as aching, Pain began 3 hours ago. Neuro: Anthony Agitation-Sedation Scale (RASS): 0 - Alert and Calm. Cardiovascular: Denies. Respiratory: Airway is patent Respiratory effort is even, unlabored, Respiratory pattern is regular, symmetrical. GI: No signs and/or symptoms were reported involving the gastrointestinal system. : Reports inability to void, since 11AM. 20:00 Reassessment: Patient and/or family updated on plan of care and expected duration. Pain br2 level reassessed. Patient is alert, oriented x 3, equal unlabored respirations, skin warm/dry/pink. Patient states feeling better. Patient states symptoms have improved. Vital Signs: 18:49 Pulse 73; Resp 16; Temp 99.2(O); Pulse Ox 100% on R/A; Weight 68.95 kg; Height 5 ft. 8 hb in. ; Pain 8/10; 20:14 BP 144 / 65; Pulse 62; Resp 18; Pulse Ox 94% ; br2 18:49 Body Mass Index 23.11 (68.95 kg, 172.72 cm) hb 18:49 Pain Scale: Adult hb ED Course: 18:37 Patient arrived in ED. im 18:51 Triage completed. hb 18:51 Arm band placed on. hb 18:54 Ziyad Bryan MD is Attending Physician. foreign 19:11 Johnna Romo, MUNDO is Primary Nurse. br2 19:15 Patient has correct armband on for positive identification. Placed in gown. Bed in low br2 position. Call light in reach. Side rails up X 1. Provided Education on: PLAN OF CARE. 19:15 No provider procedures requiring assistance completed. br2 19:40 PT-INR Sent. br2 19:40 Comprehensive Metabolic Panel Sent. br2 19:40 Type And Screen Sent. br2 19:40 Inserted saline lock: 20 gauge in right forearm, using aseptic technique. Blood br2 collected. Flushed with 10 mL NS. 19:46 Bladder irrigated via Kendrick with 30ml normal saline returned wilfrido urine Patient br2 tolerated well. 19:56 Daren Deleon MD is Referral Physician. foreign 20:15 IV discontinued, intact, bleeding controlled, No redness/swelling at site. Pressure br2 dressing applied. Administered Medications: 20:03 Not Given (Physician Discretion): ns 0.9% 500 ml 500 ml IV at 125 ml/hr once br2 20:09 Drug: Rocephin IV 1 grams IV at per protocol once; Given slow IV push per pharmacy br2 instructions Route: IV; Rate: per protocol; Site: right forearm; 10/04 02:32 Follow up: Response: No adverse reaction; Medication administered at discharge.; IV br2 Status: Completed infusion; IV Intake: 100ml Medication: 10/03 20:17 VIS not applicable for this client. br2 Intake: 10/04 02:32 IV: 100ml; Total: 100ml. br2 Outcome: 10/03 19:15 Discharged to home ambulatory, br2 Condition: good Discharge instructions given to patient, Instructed on discharge instructions, follow up and referral plans. Demonstrated understanding of instructions, follow-up care, medications, Prescriptions given X 1, 19:55 Discharge ordered by . foreign 20:31 Patient left the ED. br2 Signatures: Ziyad Bryan MD MD cha Baxter, Heather, RN RN Melinda Davis Belinda, RN RN br2
[2024-10-03 20:04] LABS: Albumin 3.2 g/dL (3.4-5.0); Albumin/Globulin Ratio 1.1 (1.1-1.8); Anion Gap 8.6 mEq/L (5.0-15.0); Bilirubin Total 0.8 mg/dL (0.2-1.0); Potassium 3.6 mEq/L (3.5-5.1); Protein, Total 6.2 g/dL (6.4-8.2)
[2024-10-03] MEDS ORDERED: CEFTRIAXONE 1000 MG/VIAL ONE (20:06)
[2024-10-03 21:47] VITALS: BP 144/65
[2024-10-03 21:49] VITALS: TEMP 99.2; O2SAT 100
== END 2024-10-03 20:31 | disposition home or self-care (01) ==
LOC: ER 18:35
DX: T83.098A Other mechanical complication of other urinary catheter, initial encounter (principal)
CPT/HCPCS: 96365; 85025; 36415; 85610; 80053; 51700; 99285; 96366; J0696

== ENCOUNTER 2025-07-24 16:52 | Emergency (ER) | payer OTHER ==
--- NOTE | 2025-07-24 18:25 | ER ---
Nurse's Notes [facility] Name: Ralph Mckeon Age: 89 yrs Sex: Male : 1935 Arrival Date: 07/24/2025 Time: 16:52 Bed 11 Private MD: Diagnosis: Retention of urine, unspecified Presentation: 07/24 17:01 Chief complaint: Patient states: Was at the urologist Dr Juarez and they were unable me1 to get a catheter in and sent him here. Coronavirus screen: At this time, the client does not indicate any symptoms associated with coronavirus-19. Ebola Screen: No symptoms or risks identified at this time. Initial Sepsis Screen: Does the patient meet any 2 criteria? No. Patient's initial sepsis screen is negative. Does the patient have a suspected source of infection? No. Patient's initial sepsis screen is negative. Risk Assessment: Do you want to hurt yourself or someone else? Patient reports no desire to harm self or others. Onset of symptoms is unknown. 17:01 Method Of Arrival: Ambulatory [facility] 17:01 Acuity: PEYTON 3 me1 Historical: - Allergies: 17:04 No Known Allergies; me1 - PMHx: 17:04 High Cholesterol; Hypertension; BPH (Unknown); me1 - PSHx: 17:04 cataracts; Prostate surgery; Right knee replacement; me1 - Immunization history:: Adult Immunizations up to date. - Infectious Disease History:: Denies. - Social history:: Smoking status: Patient denies any tobacco usage or history of. Screenin:48 [facility] ED Fall Risk Assessment (Adult) History of falling in the last 3 months, 1 including since admission No falls in past 3 months (0 pts) Confusion or Disorientation No (0 pts) Intoxicated or Sedated No (0 pts) Impaired Gait Yes (1 pt) Mobility Assist Device Used Yes (1 pt) Altered Elimination No (0 pt) Score/Fall Risk Level 0 - 2 = Low Risk Oriented to surroundings, Maintained a safe environment, Educated pt \T\ family on fall prevention, incl call for assistance when getting out of bed, Assessed \T\ reinforced patient's understanding of fall precautions, Hourly rounding (assess needs \T\ fall precautionary measures) done, Used ambulatory aids as needed (educated on \T\ assisted with). Abuse screen: Denies threats or abuse. Denies injuries from another. Nutritional screening: No deficits noted. Tuberculosis screening: No symptoms or risk factors identified. Assessment: 17:43 Reassessment: Attempted vera catheter twice with no success. notified.. hh1 18:13 Reassessment: Abby Quiroz [phone]. hh1 18:48 General: Appears in no apparent distress. Behavior is calm, cooperative. Pain: Denies 1 pain. Neuro: No deficits noted. Cardiovascular: No deficits noted. Respiratory: No deficits noted. : Reports inability to void, Pt usually self cath but was unable to get catheter in today, pt went to urologist and they were also unsucessful and told to come to ER. 19:30 Reassessment: Patient and/or family updated on plan of care and expected duration. Pain nh2 level reassessed. Pain: Denies pain. Neuro: Level of Consciousness is awake, alert, obeys commands, Oriented to person, place, time, situation, Appropriate for age. Cardiovascular: Patient's skin is warm and dry. Respiratory: Airway is patent Trachea midline. : Reports inability to void. 19:30 Derm: Skin is pink, warm \T\ dry. nh2 Vital Signs: 17:01 BP 173 / 82; Pulse 62; Resp 17; Temp 98.2; Pulse Ox 97% ; Weight 68.04 kg; Height 5 ft. me1 6 in. ; Pain 0/10; 19:40 BP 181 / 80 LA; Pulse 54; Resp 18; Temp 97.8; Pulse Ox 96% on R/A; nh2 19:41 BP 185 / 76 RA; Pulse 52; Resp 18; Pulse Ox 99% on R/A; nh2 17:01 Body Mass Index 24.21 (68.04 kg, 167.64 cm) me1 17:01 Pain Scale: Adult mn1 ED Course: 16:54 Patient arrived in ED. im 16:55 Daisy Masters FNP-C [facility]. kb 16:55 Marcellus Escudero MD is Attending Physician. kb 17:04 Triage completed. me1 17:04 Arm band placed on Patient placed in waiting room. me1 17:42 Fadia Cherry, MUNDO is Primary Nurse. hh1 18:33 initiated transfer to [facility] as requested by pt, as his urologist is on staff at [facility]. 18:48 Patient has correct armband on for positive identification. Placed in gown. Bed in low hh1 position. Call light in reach. Side rails up X2. Provided Education on: plan of care, transfer. 18:48 No provider procedures requiring assistance completed. 1 19:04 Report given to Tramaine, MUNDO. 1 19:45 Patient transferred, IV remains in place. nh2 Administered Medications: No medications were administered Medication: 18:48 VIS not applicable for this client. hh1 Outcome: 18:25 ER care complete, transfer ordered by . kb 19:45 Transferred by ground EMS to [facility], Transfer form nh2 completed. 19:45 Condition: stable 19:45 Instructed on follow up and referral plans. the need for admit, Demonstrated understanding of instructions, follow-up care, 19:54 Patient left the ED. nh2 Signatures: Daisy Masters, CENTRIFUGE SEPARATOR TENDER-C CENTRIFUGE SEPARATOR TENDER-CkAdriana Mukherjee Melinda Cadet Michelle, MUNDO RN mn1 Tarun Dent Jr RN RN [facility] Fadia Cherry, MUNDO RN 1 Corrections: (The following items were deleted from the chart) 17:05 17:01 Pulse 62bpm; Resp 17bpm; Pulse Ox 97%; Temp 98.2F; 68.04 kg; Height 5 ft. 6 in.; me1 BMI: 24.2; Pain 0/10, Adult; me1
--- NOTE | 2025-07-24 18:25 | EDPHYS ---
Physician Documentation [facility] Name: Ralph Mckeon Age: 89 yrs Sex: Male : 1935 Arrival Date: 07/24/2025 Time: 16:52 Bed 11 Private MD: ED Physician Marcellus Escudero HPI: 07/24 18:15 This 89 yrs old Male presents to ER via Ambulatory with complaints of Urinary Problem - kb needs urinary catheter. 18:15 Pt is an 89 year old male who presents for vera placement. States he straight caths at home but could not get the catheter in today so he went to the urologist's office and they were unable to get a Vera and after multiple attempts. They sent him here to have Vera placed. He reports postvoid residual was 300 mL. States the plan is to have Vera placed here keep it in for 1 week, follow-up with urology for them to take it out and do a cystoscopy. Denies any complaints. Historical: - Allergies: 17:04 No Known Allergies; me1 - PMHx: 17:04 High Cholesterol; Hypertension; BPH (Unknown); me1 - PSHx: 17:04 cataracts; Prostate surgery; Right knee replacement; me1 - Immunization history:: Adult Immunizations up to date. - Infectious Disease History:: Denies. - Social history:: Smoking status: Patient denies any tobacco usage or history of. ROS: 18:13 Constitutional: As per HPI kb Exam: 18:13 Constitutional: This is a well developed, well nourished patient who is awake, alert, kb and in no acute distress. ENT: Moist Mucous membranes Cardiovascular: Regular rate Respiratory: Respirations even and unlabored. No increased work of breathing. Talking in full sentences Abdomen/GI: Soft, non-tender. No distention Skin: Warm, dry with normal turgor. Normal color. MS/ Extremity: Pulses equal, no cyanosis. Neurovascular intact. Full, normal range of motion. Neuro: Awake and alert, GCS 15, oriented to person, place, time, and situation. Vital Signs: 17:01 BP 173 / 82; Pulse 62; Resp 17; Temp 98.2; Pulse Ox 97% ; Weight 68.04 kg; Height 5 ft. me1 6 in. ; Pain 0/10; 19:40 BP 181 / 80 LA; Pulse 54; Resp 18; Temp 97.8; Pulse Ox 96% on R/A; nh2 19:41 BP 185 / 76 RA; Pulse 52; Resp 18; Pulse Ox 99% on R/A; nh2 17:01 Body Mass Index 24.21 (68.04 kg, 167.64 cm) me1 17:01 Pain Scale: Adult me1 Procedures: 18:14 attempted coude vera placement twice, size 12 and 16, without success. kb MDM: 16:55 Medical Screening Exam initiated kb 18:14 Data reviewed: vital signs, nurses notes. kb 18:18 Differential diagnosis: urinary retention, uti, ureteral stricture. Consideration of kb Admission/Observation Escalation of care including admission/observation considered. will transfer pt for urologist, pt requests transfer to [facility]. States he will not go to [place]. Historians other than the Patient: Daughter/Son: daughter. Counseling: I had a detailed discussion with the patient and/or guardian regarding the historical points, exam findings, and any diagnostic results supporting the discharge/admit diagnosis, the need to transfer to another facility, [facility] does not immediately have the required specialist. ED course: After multiple attempts at vera placement by RN and myself, will transfer the pt for urology. Pt requests transfer to [facility] for continuity of care, Dr Juarez is his urologist. . 18:47 Management of patient was discussed with the following: Requirements Manager: Dr Guidry, sagrario urologist at [facility] accepts pt for transfer to [facility]. 07/24 17:52 Order name: CBC with Diff; Complete Time: 18:48 kb 07/24 17:52 Order name: BMP; Complete Time: 18:57 kb 07/24 17:52 Order name: IV Start; Complete Time: 19:17 kb Administered Medications: No medications were administered Disposition: 07/25 06:57 Co-signature as Attending Physician, Marcellus Escudero MD I reviewed the patient's care rn provided by the Advanced Practice Provider and agree with the diagnosis and treatment plan. 06:57 I agree with the assessment and plan of care. rn Disposition Summary: 07/24/25 18:25 Transfer Ordered Notes: Transfer Location: [facility] kb Reason: Higher level of care kb Condition: Stable kb Problem: new kb Symptoms: are unchanged kb Accepting Physician: Dr Guidry(07/24/25 19:54) nh2 Diagnosis - Retention of urine, unspecified kb Forms: - Medication Reconciliation Form kb - SBAR form kb Signatures: Dispatcher [employer] EDDaisy Nation, TRAVELING ACCOUNTANT-C TRAVELING ACCOUNTANT-CkMarcellus Handley MD MD rn Ny Gutierrez RN RN me1 Tarun Dent Jr RN RN nh2 Corrections: (The following items were deleted from the chart) 07/24 18:14 18:13 Constitutional: This is a well developed, well nourished patient who is awake, kb alert, and in no acute distress. kb 18:53 18:25 Dr zabala kb 19:16 17:10 Vera ordered. kb bm8 19:54 18:53 Dr Guidry kb nh2
[2025-07-24 18:43] LABS: Absolute Lymphocytes (CBC) 1.4 K/uL (0.7-4.9); Hematocrit 44.3 % (39.6-49.0); Hemoglobin 14.9 g/dL (13.6-17.9); MCH 31.6 pg (27.0-35.0); MCHC 33.6 g/dL (32.0-36.0); MCV 94.0 fL (80-100); MPV 8.3 fL (7.6-11.3); Nucleated RBC Absolute Count 0.0 (0-0); Nucleated Red Blood Cells % 0.0 % (0-0); RBC Red Blood Cell Count 4.71 M/uL (4.33-5.43); White Blood Count 5.80 thou/uL (4.3-10.9)
[2025-07-24 18:56] LABS: Anion Gap 10.5 mEq/L (5.0-15.0); BUN Blood Urea Nitrogen 16.0 mg/dL (7-18); Glucose Level 82.0 mg/dL (74-106); Potassium 3.5 mEq/L (3.5-5.1)
[2025-07-25 03:43] VITALS: TEMP 97.8
[2025-07-25 03:45] VITALS: BP 185/76; O2SAT 99
== END 2025-07-24 19:54 | disposition short-term general hospital (02) ==
LOC: ER 16:52
DX: R33.9 Retention of urine, unspecified (principal); N40.0 Benign prostatic hyperplasia without lower urinary tract symptoms; I10 Essential (primary) hypertension; E78.00 Pure hypercholesterolemia, unspecified
CPT/HCPCS: 36415; 80048; 85025; 99285